=== PATIENT | male | born 1955 | race African-American/Black ===

== ENCOUNTER 2017-06-13 10:32 | Inpatient (IN) ==
[2017-06-13 11:42] LABS: Basophils % 0.2 % (0.0-0.8); Eosinophils # 0.2 10*3/uL (0.0-0.87); Eosinophils % 4.1 % (0.00-10.9); Immature Granulocytes % 0.4 %; Immature Granulocytes Absolute 0.02 #; Lymphocytes % 19.2 % (21.2-54.2); Mean Corpuscular HGB Conc 33.5 GM/DL (32-36); Mean Corpuscular Hemoglobin 31 PG (27-34); Mean Corpuscular Volume 92.4 FL (87-102); Mean Platelet Volume 10.5 FL (9.6-12.0); Monocytes # 0.5 10*3/uL (0.11-0.8); Monocytes % 10.2 % (1.7-12.7); Neutrophils # 3.4 10*3/uL (1.4-7.4); Neutrophils % 65.9 % (38.7-73.9); Platelet Count 127 T/CUMM (130-400); Red Blood Count 1.84 MC/CUMM (3.8-5.5); Red Cell Distribution Width 17.2 % (9.3-17.3); White Blood Count 5.1 T/CUMM (4-12)
--- NOTE | 2017-06-13 11:47 | XRay Report ---
Exam: XR chest 1V portable Date: 06/13/2017 11:18 AM Indication: Shortness of breath Comparison: 06/04/2017 Technical: AP Findings: Cardiomegaly is present. External cardiac leads are present. The necklace is present. Small granulomas present in the left and right chest regions with small calcified nodes in the mediastinum. No obvious infiltrate or effusion. Lateral marginal osteophytes are present. Impression: 1. Removal of the right sided dialysis catheter 2. Cardiomegaly without overt congestive failure infiltrates or effusions with underlying granuloma change. PROCEDURE INTERPRETED AT [facility] DEPARTMENT OF RADIOLOGY Final Report Signed by: Dr. Peña Sheriff
[2017-06-13 11:56] LABS: Hemoglobin 5.7 GM/DL (14.0-18.0)
[2017-06-13 12:09] LABS: Alanine Aminotransferase 13 U/L (16-61); Albumin 3.5 G/DL (3.4-5.0); Alkaline Phosphatase 119 U/L (45-117); Aspartate Amino Transferase 31 U/L (0-37); Bilirubin,Direct < 0.100 MG/DL (0.0-0.20); Bilirubin,Indirect 0.3 MG/DL (0.0-1.0); Blood Urea Nitrogen 92 MG/DL (7-18); Calcium 8.5 MG/DL (8.5-10.1); Glucose 157 MG/DL (74-106); Osmolality,Calculated 311.3 MOS/KG (273-304); Potassium 4.2 MMOL/L (3.5-5.1); Sodium 141 MMOL/L (136-145)
--- NOTE | 2017-06-13 14:08 | Emergency Department Note ---
I, Carolyn Pearce, am scribing for, and in the presence of, Fernando Mcgee MD 11:22. IEverardo Sunil, MD, personally performed the services described in this documentation, ascribed by Carolyn Pearce in my presence, and it is both accurate and complete . Arrival - Arrival Chief Complaint: Shortness of Breath Stated Complaint: SOB ED Nursing Triage Note: SOB onset x 2 days with frequent urination - pt is a dialysis pt and states that he is on peritoneal dialysis and does dialysis daily Mode of Arrival: Wheelchair Limitations: No Limitations Source: Patient - History of Present Illness HPI Narrative: Pt is a 62 y/o male who came to ED with c/o SOB onset x 2 days with frequent urination. Pt does hemodialysis started beginning this year at home once a day with two bottles (unsure of name), in which is peritoneal dialysis. Pt has associated sxs of orthopnea, chills, and BLE swelling (not nml), but denies abdomen pain. Pt reports Silvio put catheter in one month ago. PMHx of gout , but denies hx of heart issues. Onset (ago): week(s) Consistency: constant Severity: moderate Severity scale (1-10): 5 Quality: aching, fullness Allergies/Adverse Reactions: Allergies Allergy/AdvReac Type Severity Reaction Status Date / Time lisinopril Allergy Severe ANAPHYLAXIS Verified 05/08/17 09:59 ANY "PRIL" MEDICATIONS Allergy Severe ANAPHYLAXIS Uncoded 05/08/17 09:59 Home Medications: Home Medications Medication Instructions Recorded Confirmed Type Folic Acid/Vit B Complex and C 1 each PO QAM 11/14/16 06/13/17 History [Dialyvite Tablet] NIFEdipine [Adalat cc] 90 mg PO QAM 11/14/16 06/13/17 History Sevelamer Carbonate Tab [Renvela 800 mg PO BID 05/08/17 06/13/17 History Tab] Cinacalcet [Sensipar] 30 mg PO QAM 06/13/17 06/13/17 History cloNIDine HCl [Clonidine HCl] 0.1 mg PO TID 06/13/17 06/13/17 History Review of System - Review of System 12 point system: reviewed and no additional remarkable complaints except as stated - Review of System Constitutional: Present: chills (cold). Absent: fever Respiratory: Present: respiratory distress. Absent: cough Cardiovascular: Present: orthopnea, edema. Absent: chest pain Gastrointestinal: Absent: abdominal pain, nausea, vomiting Genitourinary male: Present: frequency. Absent: dysuria Skin: Absent: rash Neurological: Absent: headache Medical,Surgical,& Family Hx - Medical History Cardio: History of: Hypertension Psychological: History of: Depression Neurology: No history of: Seizures HEENT: History of: Eye Problem (READING GLASSES) Rheumatology: History of;: Gout Respiratory: No history of: Respiratory Problems (FLU VAC- YES; PNEU VAC- YES.) Renal: History of: Dialysis, Renal Failure Gastrointestinal: History of: GERD, Polyps (REMOVED), GI Problems (HERNIA) - Surgical History Abdominal Surgeries: Surgical HX of: Colonoscopy, EGD Patient denies: Abdominal Surgery (05/08/17 SCHED FOR PERITONEAL DIALYSIS CATHETER) - Social History Smoking Status: Never smoker Frequency of Alcohol Use: None Type of Drug Use: None Marital Status: Single Lives With:: Significant Other Functional capacity: independent ambulation Exam Vital Signs: Vital Signs Temperature 98.1 F 06/13/17 11:38 Pulse Rate 100 H 06/13/17 13:30 Respiratory Rate 18 06/13/17 13:30 Blood Pressure 137/85 06/13/17 13:30 O2 Sat by Pulse Oximetry 98 06/13/17 13:30 - General General appearance: alert, in no apparent distress - Head Head exam: Present: atraumatic, normocephalic - Eye Eye exam: Present: PERRL, EOMI - ENT ENT exam: Present: mucous membranes moist. Absent: mucous membranes dry - Neck Neck exam: Present: full ROM - Chest Chest inspection: Present: symmetric chest wall rise, other (clean catheter). Absent: tenderness - Respiratory Respiratory exam: Present: rales (bilateral crackles). Absent: accessory muscle use, respiratory distress - Cardiovascular Cardiovascular exam: Present: regular rate, normal rhythm, normal heart sounds, JVD (slight elevation) - Abdominal Exam Abdominal exam: Present: soft. Absent: tenderness - Extremities Exam Extremities exam: Present: full ROM, tenderness (right knee some swelling), pedal edema - Neurological Exam Neurological exam: Present: alert, oriented X3, CN II-XII intact - Psychiatric Psychiatric exam: Present: normal affect, normal mood - Skin Skin exam: Present: warm, dry Results - Labs CBC & BMP: 06/13/17 11:31 06/13/17 11:31 Lab Results: I have reviewed the patients labs Labs: Laboratory Tests 06/13/17 06/13/17 06/13/17 11:31 11:31 11:31 WBC 5.1 RBC 1.84 L Hgb 5.7 L* Hct 17.0 L* Plt Count 127 L Lymph % (Auto) 19.2 L Lymph # (Auto) 1.0 L BUN 92 H Creatinine 14.20 H Glucose 157 H Calculated Osmolality 311.3 H Direct Bilirubin < 0.100 Indirect Bilirubin 0.3 AST 31 ALT 13 L Alkaline Phosphatase 119 H B-Natriuretic Peptide 848 H - Impressions Patient has symptomatic anemia admitted him under the hospitalist Disposition Clinical Impression: Symptomatic anemia, End stage renal disease Case discussed with: patient Disposition: Still a Patient Condition: Stable
[2017-06-13] MEDS ORDERED: PROMETHAZINE 25 MG TABLET PO PRN (15:05)
[2017-06-13] MEDS ORDERED: MORPHINE 2 MG/1 ML SYRINGE IV PRN (15:05)
[2017-06-13] MEDS ORDERED: ACETAMINOPHEN 325 MG TABLET PO PRN ×2 (15:05)
[2017-06-13] MEDS ORDERED: guaiFENesin/DM ER 600-30 MG TABLET PO PRN (15:05)
[2017-06-13] MEDS ORDERED: DOCUSATE SODIUM 100 MG CAPSULE PO PRN (15:05)
[2017-06-13] MEDS ORDERED: ONDANSETRON 4 MG/2 ML VIAL IV PRN (15:05)
[2017-06-13] MEDS ORDERED: diphenhydrAMINE CAP 25 MG CAPSULE PO PRN (15:05)
[2017-06-13] MEDS ORDERED: SODIUM CHLORIDE 0.9% 250 ML IV PRN (15:08)
[2017-06-13 15:09] LABS: Apearance,Urine CLEAR (Clear); Bilirubin,Urine Negative (Negative); Blood, Urine Negative (Negative); Glucose,Urine (UA) 50 mg/dL (Negative); Ketones,Urine Negative (Negative); Mucus,Urine Occasional /LPF (Occasional); Nitrite,Urine Negative (Negative); Protein,Urine 100 MG/DL; RBC,Urine 1 /HPF (0-4); Urine Color Yellow (Yellow); Urine Specific Gravity 1.009 (1.001-1.035); Urine Urobilinogen < 2.0 EU/DL (0.2-1.0); WBC,Urine 1 /HPF (0-6)
--- NOTE | 2017-06-13 15:17 | Hospitalist History & Physical ---
<Jesi Powers - Last Filed: 06/13/17 15:11> Assessment and Plan - Time spent with patient Time spent with patient: Greater than 30 minutes (1) End-stage renal disease on peritoneal dialysis Status: Acute Assessment and plan: 62-year-old -[place] male with history of hypertension, gout, and end- stage renal disease on peritoneal dialysis started 1 month ago admitted by the hospitalist service for complaints of shortness of breath. Dr. Perrin will see and examine patient and further recommendations to follow. Severe anemia/SOB--patient was found to be severely anemic with an H&H of 5.7/ 17 and elevated BNP. Will go ahead and transfuse 4 units of blood and give some Lasix in between units due to fluid overload. End-stage renal disease on PD/recent history of peritonitis/fluid overload-- patient is a PD patient so will consult Dr. Carpio from nephrology to assist. Patient states he has been infusing antibiotics through his catheter due to peritonitis for approximately 2 weeks now. There is no antibiotics listed on his home med sheet and he cannot remember which one it is. He is in fluid overload so we will check with nephrology and see if his PD needs to be adjusted. Hypertension--patient's home medicines have been restarted and will continue to monitor his blood pressures which are okay at this point. History of gout--patient is also complaining of some right knee pain so we will check an x-ray and uric acid level due to his history of gout. As needed pain medications have been ordered. If uric acid levels are up can start something for gout at that time. Current Visit: Yes (2) Hypertension Status: Acute Current Visit: Yes (3) History of gout Status: Acute Current Visit: Yes (4) Shortness of breath Status: Acute Current Visit: Yes (5) Symptomatic anemia Status: Acute Current Visit: Yes History of Present Illness Chief complaint: Shortness of breath History of present illness: Mr. Burris is a 62 year old -[place] male with history of hypertension , end-stage renal disease on PD started last month, history of GI bleed requiring blood transfusion, and gout presenting to the ED with a 3 day history of progressive shortness of breath. Patient states over the last several days his shortness of breath has worsened and is gotten to where he can take about 5 or 6 steps before he has to sit down. He is also complaining of right knee pain. He denies dizziness, shortness of breath, and he does have some pedal edema. Patient states he performs his PD every day and he has been infusing antibiotics through his catheter for several weeks now due to peritonitis. This was taken care of at the [facility]. There are no antibiotics listed on his home medicine list. Patient also had right sided dialysis catheter removal from when he did HD just recently. Patient states last September he was found to be severely anemic, required colonoscopy where they found several bleeding polyps that were removed. He states he required 4 units of blood at that time. This was done in [place]. Patient is afebrile and his vital signs are stable. His significant lab values are H&H is 5.7/17, creatinine 14.2, blood sugars 157 and BNP is 848. After discussion with Dr. Mcgee the ED physician and Dr. Perrin the admitting hospitalist, it was agreed patient would be admitted for further evaluation and treatment. Patient's medicines have been reconciled and he is a full code. Home Medications Medication Instructions Recorded Confirmed Type Folic Acid/Vit B Complex and C 1 each PO QAM 11/14/16 06/13/17 History [Dialyvite Tablet] NIFEdipine [Adalat cc] 90 mg PO QAM 11/14/16 06/13/17 History Sevelamer Carbonate Tab [Renvela 800 mg PO TID W/MEALS 05/08/17 06/13/17 History Tab] Allopurinol 100 mg PO DAILY 06/13/17 06/13/17 History Cinacalcet [Sensipar] 30 mg PO QAM 06/13/17 06/13/17 History Ferrous Sulfate 324 mg PO DAILY 06/13/17 06/13/17 History cloNIDine HCl [Clonidine HCl] 0.1 mg PO TID 06/13/17 06/13/17 History Allergies Allergy/AdvReac Type Severity Reaction Status Date / Time lisinopril Allergy Severe ANAPHYLAXIS Verified 05/08/17 09:59 ANY "PRIL" MEDICATIONS Allergy Severe ANAPHYLAXIS Uncoded 05/08/17 09:59 Medical,Surgical,& Family Hx - Medical History Cardio: History of: Hypertension Psychological: History of: Depression Neurology: No history of: Seizures HEENT: History of: Eye Problem (READING GLASSES) Rheumatology: History of;: Gout Respiratory: No history of: Respiratory Problems (FLU VAC- YES; PNEU VAC- YES.) Renal: History of: Dialysis, Renal Failure Gastrointestinal: History of: GERD, Polyps (REMOVED), GI Problems (HERNIA) - Surgical History Abdominal Surgeries: Surgical HX of: Colonoscopy, EGD Patient denies: Abdominal Surgery (05/08/17 SCHED FOR PERITONEAL DIALYSIS CATHETER) - Family History Family History: Reports;: Family Hypertension - Social History Smoking Status: Never smoker Frequency of Alcohol Use: None Type of Drug Use: None Marital Status: Single Lives With:: Alone Functional capacity: independent ambulation 12 point system: reviewed and no additional remarkable complaints except as stated Exam - Constitutional Vitals: Period Temp Pulse Resp BP Sys/Champagne Pulse Ox Last 24 Hr 98.1 F-98.1 F 80-100 18-22 125-160/74-102 97-100 Exam: Constitutional System: No distress. No tremulousness. Head: Normocephalic, atraumatic. Ears, Nose and Throat System: No evidence of Otitis or Mastoiditis. No epistaxis or discharge Eyes System: Pupils equal, round, and reactive. Extraocular muscles intact. Neck: Supple, without adenopathy, No jugular venous distention. No thyromegaly, neck mass, or prior surgery apparent. Respiratory System: Chest clear to auscultation. Cardiovascular System: Heart with regular rate and rhythm. No murmur. GI System: Abdomen soft, nontender. Normo active bowel sounds present. PD catheter intact with no signs of infection. Musculoskeletal System: limbs with minimal pedal edema. Full distal pulses. Neurological System: No discernable sensory deficit. No aphasia Psychiatric System: Conversation is rational Results - Labs CBC & BMP: 06/13/17 11:31 06/13/17 11:31 Lab Results: I have reviewed the past 24 hour labs - Impressions EKG is pending - Diagnostic Findings Procedure: Chest x-ray: report reviewed by me (Removal of right-sided dialysis catheter. Cardiomegaly without overt congestive heart failure or effusions.), X -ray: report reviewed by me (Knee x-ray is pending) Quality Measures - VTE Contraindication to Pharmacological VTE Prophylaxis: High Risk of Bleeding <Asif Perrin - Last Filed: 06/13/17 19:18> Assessment and Plan (1) Symptomatic anemia Status: Acute Assessment and plan: I saw and examined the patient in conjunction with nurse practitioner Ana Horton. Patient has known end-stage renal disease converting recently to peritoneal dialysis. He was also on antibiotics for recent peritonitis. He presented to emergency room with significant dyspnea which has been increasing over the past 3 days. He admits to orthopnea and PND and mild ankle edema. He denies fever, chills, vomiting. Lab work showed hemoglobin 5.7 with hematocrit of 17. Chest x-ray read no overt heart failure. On exam he has a few basilar rales, mild JVD and mild ankle edema. He is currently being transfused. 4 units have been ordered. Nephrology will adjust dialysate for a degree of apparent volume overload. He denies shortness of breath currently at rest. Current Visit: Yes (2) CHF (congestive heart failure) Status: Acute Current Visit: Yes (3) Shortness of breath Status: Acute Current Visit: Yes History of Present Illness History of present illness: Mr. Burris is a 62 year old male Exam - Constitutional Vitals: Period Temp Pulse Resp BP Sys/Champagne Pulse Ox Last 24 Hr 97.7 F-98.2 F 76-100 18-22 125-168/74-102 95-100 Results - Labs CBC & BMP: 06/13/17 11:31 06/13/17 11:31
--- NOTE | 2017-06-13 15:29 | EKG Report ---
Stationary ECG Study [facility] ER Test Date: 06/13/2017 11:05:38 AM Pat Name: CHANTEL DEWEY Department: Room: EDWAIT Gender: M Change Management Lead: MILAGROS Payne : 1955 Requested by: Jesi Powers Order Number: [id number] Reading MD: ALYSA SANCHEZ Intervals [place] Rate: 84 P: 58 CA: 177 QRS: 48 QRSD: 91 T: 238 QT: 380 QTc: 422 Interpretive Statements SINUS RHYTHM MODERATE T-WAVE ABNORMALITY, CONSIDER LATERAL ISCHEMIA MODERATE T-WAVE ABNORMALITY, CONSIDER INFERIOR ISCHEMIA (UNCHANGED FROM PREVIOUS TRACING 06/05/2017) Electronically Signed On 06-15-17 17:51:26 CDT by ALYSA SANCHEZ [email or web address]
[2017-06-13] MEDS ORDERED: PANTOPRAZOLE 40 MG TABLET PO SCH (15:30)
--- NOTE | 2017-06-13 15:30 | XRay Report ---
Right knee, 2 views. Indication: Knee pain. There is a small knee joint effusion. There is patellofemoral joint space loss and exuberant osteophyte formation. There is calcification in the intraosseous ligament. There is narrowing of both the medial and lateral knee joint compartment. There are osteophytes of the medial compartment, and irregularity along the articular surface of the medial femoral condyle. There is anterior tibial spine spurring. No fracture or dislocation. No lytic or blastic lesion. Impression: Pronounced osteoarthritis. Small knee joint effusion. PROCEDURE INTERPRETED AT [facility] DEPARTMENT OF RADIOLOGY Final Report Signed by: Dr. Shazia Sanchez
[2017-06-13] MEDS ORDERED: FUROSEMIDE 20 MG/2 ML VIAL IV ONE ×2 (15:35→23:30)
--- NOTE | 2017-06-13 16:53 | Nephrology Consult Note ---
History of Present Illness Chief complaint: ESRD on PD, symptomatic anemia History of present illness: Mr. Burris is a 62 year old male who is on peritoneal dialysis. He experienced significant exertional dyspnea of lately. And was found to have a hematocrit today of 70%. His hematocrit less than 10 days ago was 27 and prior to that approximately 30. He noticed black stool this past week. He had a 4 unit gi bleed managed at the [facility] less than one year ago. Describes removal of some colon polyps at colonoscopy that were blamed. Iron saturation 22% and ferritin 758 this month Was managed on hemodialysis with a catheter for a while but switched to PD recently and is just completing a course of Fortaz and Merrem for peritonitis with ? culture results. On exam he is in no distress is able to lie flat and breathe comfortably. His chest is clear and his heart without rub or gallop abdomen is distended with peritoneal dialysate and is nontender. He does have 2+ edema of his thighs and lower legs. Chest x-ray demonstrates cardiomegaly with no volume overload Impression end-stage renal disease on peritoneal dialysis. Symptomatic anemia due to probable GI bleed. Recent peritonitis treated with Fortaz and Merrem. Plan we will alternate 2.5 and 4.25% dialysate to remove fluid. He will be transfused. We will consult GI for their evaluation of his bleeding. Home Medications Medication Instructions Recorded Confirmed Type Folic Acid/Vit B Complex and C 1 each PO QAM 11/14/16 06/13/17 History [Dialyvite Tablet] NIFEdipine [Adalat cc] 90 mg PO QAM 11/14/16 06/13/17 History Sevelamer Carbonate Tab [Renvela 800 mg PO BID 05/08/17 06/13/17 History Tab] Cinacalcet [Sensipar] 30 mg PO QAM 06/13/17 06/13/17 History cloNIDine HCl [Clonidine HCl] 0.1 mg PO TID 06/13/17 06/13/17 History Allergies Allergy/AdvReac Type Severity Reaction Status Date / Time lisinopril Allergy Severe ANAPHYLAXIS Verified 05/08/17 09:59 ANY "PRIL" MEDICATIONS Allergy Severe ANAPHYLAXIS Uncoded 05/08/17 09:59 Medical,Surgical,& Family Hx - Medical History Cardio: History of: Hypertension Psychological: History of: Depression Neurology: No history of: Seizures HEENT: History of: Eye Problem (READING GLASSES) Rheumatology: History of;: Gout Respiratory: No history of: Respiratory Problems (FLU VAC- YES; PNEU VAC- YES.) Renal: History of: Dialysis, Renal Failure Gastrointestinal: History of: GERD, Polyps (REMOVED), GI Problems (HERNIA) - Surgical History Abdominal Surgeries: Surgical HX of: Colonoscopy, EGD Patient denies: Abdominal Surgery (05/08/17 SCHED FOR PERITONEAL DIALYSIS CATHETER) - Family History Family History: Reports;: Family Hypertension - Social History Smoking Status: Never smoker Frequency of Alcohol Use: None Type of Drug Use: None Review of Systems 12 point system: reviewed and no additional remarkable complaints except as stated Exam - Vital Signs Vital signs: Period Temp Pulse Resp BP Sys/Champagne Pulse Ox Last 24 Hr 97.7 F-98.1 F 79-100 18-22 125-160/74-102 97-100 - General Appearance General appearance: well-developed, well-nourished, appears started age Neck: no JVD, no thyromegaly, no carotid bruit, supple Respiratory: no kyphosis, no scoliosis Cardiology: no murmurs, no rub, no gallops, no edema, regular rate, regular rhythm, normal S1, normal S2 Gastrointestinal: normoactive bowel sounds Integumentary: no rash, warm and dry Neurologic: no focal deficit, no asterixis, alert and oriented x3, reflexes 2+ and symmetric, gait normal, strength 5/5 Musculoskeletal: no deformities, no erythema, no cyanosis, no clubbing Psychiatric: mood/affect appropriate, cooperative Results - Labs CBC & BMP: 06/13/17 11:31 06/13/17 11:31 Assessment and Plan (1) End-stage renal disease on peritoneal dialysis Status: Acute Current Visit: Yes (2) Symptomatic anemia Status: Acute Current Visit: Yes Specialty Discharge - Follow Up or Referrals - Speciality Discharge Instructions Nephrology Instructions: Peritoneal dialysis alternating 2.5 and 4.25% dialysate. Transfusion. GI evaluation.
[2017-06-13] MEDS: cloNIDine 0.1 MG TABLET PO SCH (20:22)
[2017-06-13] MEDS ORDERED: SEVELAMER CARBONATE 800 MG TABLET PO SCH (21:00)
[2017-06-14 06:58] LABS: Basophils % 0.2 % (0.0-0.8); Eosinophils # 0.2 10*3/uL (0.0-0.87); Eosinophils % 3.7 % (0.00-10.9); Hematocrit 27.2 VOL% (42.0-52.0); Immature Granulocytes % 0.6 %; Immature Granulocytes Absolute 0.03 #; Lymphocytes # 1.1 10*3/uL (1.4-4.0); Lymphocytes % 22.7 % (21.2-54.2); Mean Corpuscular HGB Conc 33.8 GM/DL (32-36); Mean Corpuscular Hemoglobin 29 PG (27-34); Mean Corpuscular Volume 86.6 FL (87-102); Mean Platelet Volume 10.2 FL (9.6-12.0); Monocytes # 0.7 10*3/uL (0.11-0.8); Monocytes % 14.5 % (1.7-12.7); Neutrophils # 2.9 10*3/uL (1.4-7.4); Neutrophils % 58.3 % (38.7-73.9); Platelet Count 111 T/CUMM (130-400); Red Cell Distribution Width 17.9 % (9.3-17.3); White Blood Count 4.9 T/CUMM (4-12)
--- NOTE | 2017-06-14 06:58 | Gastrointestinal Consult Note ---
Assessment and Plan (1) Gastritis and duodenitis Status: Acute Assessment and plan: The patient has had a history of gastritis and duodenitis seen by Dr. Arnold back in 2009. This was thought to be due to Helicobacter pylori infection the patient was treated as he recalls but we do not know what the regimen was and how much that he took exactly. He says he thinks this was longer than 10 days. Upper endoscopy is to be performed. Should determine whether ulcers or erosions that would explain the patient's blood loss over the last 2 weeks, and the melena present. Risks and benefits of the procedure were explained to the patient which include but are not limited to: Bleeding, infection, perforation, cardiac and pulmonary compromise. If gastroparesis is present on endoscopy we will likely have to get a gastric emptying study to quantify this prior to putting him on Reglan if needed. Current Visit: Yes (2) History of Helicobacter pylori infection Status: Acute Assessment and plan: The patient has been treated in the past for Helicobacter pylori, we will determine whether or not this is been eradicated during upper endoscopy. Current Visit: Yes (3) Esophagitis determined by endoscopy Status: Acute Assessment and plan: Patient does have some recent reflux symptoms and so may have significant erosive esophagitis as part of his blood loss recently. We will determine this by endoscopy. He will need be on Protonix 40 mg twice daily. Current Visit: Yes (4) Personal history of colonic polyps Status: Acute Assessment and plan: Patient had recent colonoscopy done by the [place] in [place] approximately 1 year ago. We do not have the results of this colonoscopy report available to us. Dr. Arnold had previously documented AVMs in the colon and so this might represent a secondary source of bleeding is well. Will perform upper endoscopy first and see if this accounts for the loss of blood in this patient. I would like to avoid doing another colonoscopy given his history of post polypectomy bleeding. He is just received 4 units of blood and appears to be doing better at this point we need to watch him for stability over the next day or 2 prior to letting him go home. Current Visit: Yes History of Present Illness Chief complaint: Melena, HCT 27%-->17% over 2 weeks, severe reflux History of present illness: Mr. Burris is a 62 year old male who is been seen by Dr. Arnold at [facility] with his last upper endoscopy having been done on 05/30/2010 which showed active duodenitis and active prepyloric ulceration with reflux esophagitis who at that time was having iron deficiency anemia. The pathology from the stomach demonstrated ulceration with marked chronic inflammation but no sign of malignancy but was positive for Helicobacter pylori. The patient thinks that he was treated at the time but the medications are unknown. The patient also had a colonoscopy 05/22/10 at that time demonstrating AVMs of the cecum 2 but unfortunately there was only about 50% visualization the cecal area due to poor preparation of the colon. There were broad-based polyps removed by hot biopsy and snare polypectomy in the ascending colon transverse colon as well as some second-degree hemorrhoids noted and it was his assessment that the patient should be rechecked in another 2 years i.e. 2011. 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 Biopsies of the colon failed to show any colitis however. Looking through the hospital records as well as [facility] records this apparently did not happen here in [place]. For comparison the patient's creatinine at that time was 2.6. At this time the patient's hematocrit has been noted to be down to 17.0% with a hemoglobin of 5.7. Dr. Carpio who performs peritoneal dialysis on this patient notes that about 10 days ago the patient's hematocrit was 27% and prior to that his baseline runs about 30%. He has had a 4 unit GI bleed [facility]--this occurred after multiple polyps were removed during that colonoscopy in [facility]. Note that this patient's iron saturation was 22% with a ferritin that was fairly high perhaps from inflammation at 758 earlier this month. Note this patient had been on hemodialysis earlier but switched over to peritoneal dialysis and has been getting antibiotics for peritonitis although culture results are questionable according to Dr. Carpio. Looking through the patient's medication list it does not appear that he is on any proton pump inhibitors. This patient previously been in the [facility] working with [place]ince[facility] at the [employer] and elsewhere. He states that he does have fairly severe reflux and some mild epigastric tenderness as well as some early satiety. He had noted one single episode of melena but does not typically look at his stools. He has not seen any bright red blood per rectum that he can recall. Today on physical examination his stools are chestnut brown/ dark and grossly guaiac positive. He does not feel nauseous. The patient has had a single episode of taking Aleve in these last 2 weeks due to a gout flare that was not controlled with Tylenol alone. Home Medications Medication Instructions Recorded Confirmed Type Folic Acid/Vit B Complex and C 1 each PO QAM 11/14/16 06/13/17 History [Dialyvite Tablet] NIFEdipine [Adalat cc] 90 mg PO QAM 11/14/16 06/13/17 History Sevelamer Carbonate Tab [Renvela 800 mg PO TID W/MEALS 05/08/17 06/13/17 History Tab] Allopurinol 100 mg PO DAILY 06/13/17 06/13/17 History Cinacalcet [Sensipar] 30 mg PO QAM 06/13/17 06/13/17 History Ferrous Sulfate 324 mg PO DAILY 06/13/17 06/13/17 History cloNIDine HCl [Clonidine HCl] 0.1 mg PO TID 06/13/17 06/13/17 History Allergies Allergy/AdvReac Type Severity Reaction Status Date / Time lisinopril Allergy Severe ANAPHYLAXIS Verified 05/08/17 09:59 ANY "PRIL" MEDICATIONS Allergy Severe ANAPHYLAXIS Uncoded 05/08/17 09:59 Medical,Surgical,& Family Hx - Medical History Cardio: History of: Hypertension Psychological: History of: Depression Neurology: No history of: Seizures HEENT: History of: Eye Problem (READING GLASSES) Rheumatology: History of;: Gout Respiratory: No history of: Respiratory Problems (FLU VAC- YES; PNEU VAC- YES.) Renal: History of: Dialysis, Renal Failure Gastrointestinal: History of: GERD, Polyps (REMOVED), GI Problems (HERNIA) - Surgical History Abdominal Surgeries: Surgical HX of: Colonoscopy, EGD Patient denies: Abdominal Surgery (05/08/17 SCHED FOR PERITONEAL DIALYSIS CATHETER) - Family History Family History: Reports;: Family Hypertension - Social History Smoking Status: Never smoker Frequency of Alcohol Use: None Type of Drug Use: None Review of systems: Constitutional: Denies fever, chills, mild nausea, but no vomiting Eyes: Denies dry eyes, and scleral icterus HENT: Denies headaches Cardiovascular: He does have some acute chest pain that sounds secondary to reflux but no claudication Respiratory: Denies shortness of breath, wheezing, and difficulty breathing, denies cough Gastrointestinal: As noted in the HPI Genitourinary: He does complain of dysuria and hematuria, patient also complains that he has been having erectile dysfunction Neurologic: Denies vision loss, and loss of sensation Musculoskeletal: Patient does have some joint swelling, joint stiffness, and muscular weakness Psychiatric: Denies depression and ti symptoms Heme-Lymph: Denies easy bruising, lymph node enlargement or tenderness, night sweats, excessive bleeding Allergies-immunologic: Denies pruritus and rhinorrhea Exam - Constitutional Vitals: Period Temp Pulse Resp BP Sys/Champagne Pulse Ox Last 24 Hr 97.6 F-98.8 F 60-100 16-22 125-168/56-102 95-100 Exam: Constitutional: Well-developed, well-nourished, alert, and in no acute distress Head and face: Head: Normocephalic atraumatic Eyes: Conjunctiva without injection, no gross scleral icterus, pupils equal and round bilaterally Ears: Intact to conversation in both ears Nose: External appearance is normal, nares patent Mouth: Oral mucous membranes moist without erythema dentition noted to be without erosion Neck: Normal appearance, no masses or tenderness, trachea midline Thyroid: Gland midline and appropriate size for age Respiratory: Normal respiratory effort, clear to auscultation without wheezes, rhonchi or rales Cardiovascular: Regular rate and rhythm, normal S1, S2, the exam is without rubs, or gallops. He does have a left lower sternal border systolic murmur likely due to turbulent flow Gastrointestinal: Moderately tender to palpation, with right lower abdominal thickening noted where the peritoneal dialysis catheter enters his abdomen, some distention noted, normal active bowel sounds, tone normal without rigidity or guarding, no masses although dialysis catheter is noted in the right lower abdomen present, no hepatomegaly, no spleen tip felt. Rectal examination showed fair tone stool was dark brown/green and grossly guaiac positive. Lymphatic: Neck without adenopathy, axilla without lymphadenopathy present Musculoskeletal: Right and left lower extremities with trace evidence of edema in the pretibial areas bilaterally Skin and subcutaneous tissue: No rashes or ulcerations noted, normal skin turgor, digits and nails without clubbing/cyanosis/deformities. Neurologic: The patient is grossly oriented to person place and time, cranial nerves show tongue movements are normal with normal tongue extrusion midline, light touch sensation is intact. Psychiatric: No hallucinations or delusions are present, does not appear depressed Results - Labs CBC & BMP: 06/14/17 06:30 06/14/17 06:30 Quality Measures - VTE Contraindication to Pharmacological VTE Prophylaxis: High Risk of Bleeding
[2017-06-14 07:00] LABS: INR 1.1; PT Patient Result 11.2 SECS
[2017-06-14 07:13] LABS: Hemoglobin 9.2 GM/DL (14.0-18.0); Red Blood Count 3.14 MC/CUMM (3.8-5.5)
[2017-06-14 07:21] LABS: Calcium 8.4 MG/DL (8.5-10.1); Magnesium 1.9 MG/DL (1.8-2.4); Osmolality,Calculated 309.1 MOS/KG (273-304); Potassium 4.8 MMOL/L (3.5-5.1)
--- NOTE | 2017-06-14 08:38 | Operative Note ---
Date of procedure: 06/14/17 Pre-op diagnosis: Severe reflux, melena, drop in hematocrit to 27%-->17% over 2 weeks Post-op diagnosis: other (This patient has erosive esophagitis, LA class A but appears to have most of his bleeding from erosive duodenitis and erosive gastritis, biopsies pending to look for Helicobacter pylori--if present we may need to treat with broader spectrum Helicobacter pylori treatment. Avoid NSAIDs , start Protonix 40 mg twice daily. Given the fact that this patient had a colonoscopy done one year ago (with subsequent hospitalization for post polypectomy bleeding) we will not repeat the colonoscopy at this time. Findings of upper endoscopy to explain the blood loss over time, as well as the presence of the dark stools.) Procedure: PROCEDURE: Esophagogastroduodenoscopy (EGD) with cold biopsy for pathology REFERRING PHYSICIAN: Clemente Reed MD INDICATIONS: This is a patient who has been last scoped with reflux and erosive gastritis [place] [address] Arnold discovered after Helicobacter pylori that was treated at that time. Patient has since developed a decrease in his hematocrit from 27-17% with some melena over the last 2 weeks. He has severe reflux as well. He is a former [employer] specialist. His primary doctor is Dr. Fariha Gregory MD at the [facility] The prior H&P was reviewed and interrim changes are as noted: No change from GI consultation today ENDOSCOPIST: Jose D Marte MD ENDOSCOPE: Olympus Video 100 System upper endoscope ASA CLASS: 4 EXAM: CV: regular rate and rhythm respiratory: Clear without wheezes abdominal: active bowel sounds MEDICATION: Per nursing anesthesia protocol, see their notes PROCEDURE: After discussion of the potential risks and benefits of upper endoscopy, the informed consent was obtained. The patient was then placed in the left lateral decubitus position where sedation was achieved as noted above. Esophageal intubation was performed without difficulty, and the endoscope was advanced through the esophagus, stomach and duodenum. A slow withdrawal was then performed with retroflexion in the stomach for careful inspection of the incisura angularis, fundus and cardia. The scope was then returned to a neutral position and withdrawn through the esophagus. The patient tolerated the procedure well and without complication. BIOPSIES: Gastric antrum/body, duodenum PHOTOGRAPHS: Obtained FINDINGS: Hypopharynx and Larynx: Normal Esohagoscopy Upper and middle thirds: Normal Lower third LA class A esophagitis noted at the last 1 cm Esophogastric junctions: LA class A erosive esophagitis noted 1 cm, no gross evidence of stricturing or Medina's Gastroscopy: Cardia/Fundus: 2 cm hiatal hernia noted, moderate amount of retained solid food in the stomach consistent with gastroparesis Body: J-shaped stomach with mild to moderate erosive gastritis, biopsied Antrum and pylorus nodular gastritis with a particular inflamed nodule biopsied with multiple erosions, biopsied Duodenoscopy: Bulb severe nodular erosive duodenitis, biopsied Second and third portions: Moderate nodular erosive gastritis, biopsy IMPRESSION: This patient has erosive esophagitis, LA class A but appears to have most of his bleeding from erosive duodenitis and erosive gastritis, biopsies pending to look for Helicobacter pylori--if present we may need to treat with broader spectrum Helicobacter pylori treatment. Avoid NSAIDs, start Protonix 40 mg twice daily. Given the fact that this patient had a colonoscopy done one year ago (with subsequent hospitalization for post polypectomy bleeding ) we will not repeat the colonoscopy at this time. Findings of upper endoscopy to explain the blood loss over time, as well as the presence of the dark stools. RECOMMENDATIONS: Follow up for biopsy results in 1-2 weeks by phone [phone]--treat Helicobacter pylori if present with amoxicillin 1000 mg per day along with clarithromycin 500 mg twice daily and Pepto-Bismol 262 mg 4 times daily, all of these 14 days Continue anti-gastroesophageal reflux measures (avoid carbonated and acidic beverages, avoid eating within 2 hours of bedtime, avoid tight fitting clothing , and elevate the front bed posts 6 inches prior to sleeping. Protonix 40 mg twice daily Jose D Marte MD COPY TO: Jeffrey Carpio MD and Dr. Clemente Reed MD Anesthesia: GRICEL THAKKAR Surgeon / Physician: Jose D Marte Estimated blood loss: minimal Specimens: other (cecum/ascending/descending/sigmoid) Condition: stable Disposition: post procedure unit (G.I. Suite) Results - Labs CBC & BMP: 06/14/17 06:30 06/14/17 06:30 Discharge Plan - Discharge Medications No Action NIFEdipine [Adalat cc] 90 mg PO QAM Sevelamer Carbonate Tab [Renvela Tab] 800 mg PO TID W/MEALS Ferrous Sulfate 324 mg PO DAILY Allopurinol 100 mg PO DAILY Folic Acid/Vit B Complex and C [Dialyvite Tablet] 1 each PO QAM cloNIDine HCl [Clonidine HCl] 0.1 mg PO TID Cinacalcet [Sensipar] 30 mg PO QAM - Follow Up or Referral - Forms/Instructions
--- NOTE | 2017-06-14 08:57 | Anesthesia Post-Op ---
Anesthesia Post OP - Post Ansesthetic Evaluation Patient seen in post op: Yes Resp: within normal limits CV: within normal limits (B/P 160/76, was given apresolin and labatolo Iv for elevated B/P Preop) Mental: within normal limits Temp: within normal limits [id number]: within normal limits Nausea and Vomiting: within normal limits Pain: within normal limits
--- NOTE | 2017-06-14 09:02 | Nephrology Progress Note ---
Nephrology - PN: Subj Interval history: Mr. Sierra is seen in follow-up of his end-stage renal disease on peritoneal dialysis. He seen in the endoscopy lab after he had his upper endoscopy which documented significant esophagitis. He is now on twice daily pantoprazole. Peritoneal dialysis is going well. He has a soft abdomen and is in no distress. His hematocrit is now 27 posttransfusion. Hopefully the proton pump inhibitor will help heal the esophagitis and should be able to go home fairly soon. Exam (PN)-Nephrology - Vital Signs Vital signs: Period Temp Pulse Resp BP Sys/Champagne Pulse Ox Last 24 Hr 97.6 F-98.8 F 60-100 16-22 125-194/56-110 95-100 - Lab 06/14/17 06:30 06/14/17 06:30 Most recent lab results Calcium 8.4 MG/DL (8.5-10.1) L 06/14/17 06:30 Magnesium 1.9 MG/DL (1.8-2.4) 06/14/17 06:30 Assessment and Plan (1) End-stage renal disease on peritoneal dialysis Status: Acute Current Visit: Yes (2) Symptomatic anemia Status: Acute Current Visit: Yes
[2017-06-14] MEDS: cloNIDine 0.1 MG TABLET PO SCH ×3 (09:37→21:23)
[2017-06-14] MEDS: PANTOPRAZOLE 40 MG TABLET PO SCH ×2 (09:37→21:23)
[2017-06-14] MEDS: CINACALCET 30 MG TABLET PO SCH (09:37)
[2017-06-14] MEDS: SEVELAMER CARBONATE 800 MG TABLET PO SCH ×4 (09:37→18:39)
[2017-06-14] MEDS: MULTIVITAMIN (BEROCCA) TABLET PO SCH (09:38)
--- NOTE | 2017-06-14 10:31 | EKG Report ---
Stationary ECG Study [facility] Test Date: 06/14/2017 10:30:53 AM Pat Name: CHANTEL DEWEY Department: Room: 531 Gender: M Truss Builder: : 1955 Requested by: Jesi Powers Order Number: [id number] Reading MD: ALYSA SANCHEZ Intervals [place] Rate: 79 P: 61 IL: 185 QRS: 55 QRSD: 90 T: 269 QT: 398 QTc: 433 Interpretive Statements SINUS RHYTHM MODERATE T-WAVE ABNORMALITY, CONSIDER LATERAL ISCHEMIA MODERATE T-WAVE ABNORMALITY, CONSIDER INFERIOR ISCHEMIA THESE ARE CHRONIC CHANGES Electronically Signed On 06-15-17 18:30:06 CDT by ALYSA SANCHEZ [email or web address]
--- NOTE | 2017-06-14 12:19 | Hospitalist Progress Note ---
Assessment and Plan - Time spent with patient Time spent with patient: Greater than 30 minutes (1) Symptomatic anemia Status: Acute Assessment and plan: Protonix oral twice daily. Avoid NSAIDs Monitor H&H Plan for discharge home on H. pylori therapy. Continue his home antihypertensive medication, monitor blood pressures. Elevated BUN/creatinine also related to GI bleed, monitor now that bleeding has been controlled. Check PSA, start on Flomax 0.4 mg daily, I can plan for him to be evaluated by urology as outpatient if he gets to go home in the next 24-48 hours. SCD hose for DVT prophylaxis Current Visit: Yes (2) End-stage renal disease on peritoneal dialysis Status: Acute Current Visit: Yes (3) Hypertension Status: Acute Current Visit: Yes (4) History of gout Status: Acute Current Visit: Yes (5) Shortness of breath Status: Acute Current Visit: Yes (6) Gastritis and duodenitis Status: Acute Current Visit: Yes (7) History of Helicobacter pylori infection Status: Acute Current Visit: Yes (8) Esophagitis determined by endoscopy Status: Acute Current Visit: Yes Hospitalist: Subjective Interval history: 62-year-old man who was admitted for severe anemia due to GI bleed. Evaluated by gastroenterology, had EGD done today and tolerated procedure well. Findings show severe erosive esophagitis and duodenitis as likely cause of his GI bleed and anemia. He received PRBC with appropriate rise in hematocrit. Now on twice daily protonix plan for discharge H pylori treatment. Complains of straining while urinating, poor urinary stream and dysuria. He stated that he was told his prostate was swollen up to one-point, level followed up. Exam - Constitutional Vitals: Period Temp Pulse Resp BP Sys/Champagne Pulse Ox Last 24 Hr 97.6 F-98.8 F 60-100 16-20 125-194/56-110 95-100 Exam: Exam: Constitutional System: No distress. No tremulousness. Head: Normocephalic, atraumatic. Ears, Nose and Throat System: No evidence of Otitis or Mastoiditis. No epistaxis or discharge Eyes System: Pupils equal, round, and reactive. Extraocular muscles intact. Neck: Supple, without adenopathy, No jugular venous distention. No thyromegaly, neck mass, or prior surgery apparent. Respiratory System: Chest clear to auscultation. Cardiovascular System: Heart with regular rate and rhythm. No murmur. GI System: Abdomen soft, nontender. Normo active bowel sounds present. PD catheter intact with no signs of infection. Musculoskeletal System: limbs with minimal pedal edema. Full distal pulses. Neurological System: No discernable sensory deficit. No aphasia Psychiatric System: Conversation is rational Results - Labs CBC & BMP: 06/14/17 06:30 06/14/17 06:30 Quality Measures - VTE Contraindication to Pharmacological VTE Prophylaxis: High Risk of Bleeding
[2017-06-14 14:39] LABS: Apearance,Urine CLEAR (Clear); Bilirubin,Urine Negative (Negative); Blood, Urine Negative (Negative); Glucose,Urine (UA) 150 mg/dL (Negative); Ketones,Urine Negative (Negative); Nitrite,Urine Negative (Negative); Protein,Urine 100 MG/DL; RBC,Urine 1 /HPF (0-4); Urine Color Straw (Yellow); Urine Specific Gravity 1.008 (1.001-1.035); Urine Urobilinogen < 2.0 EU/DL (0.2-1.0)
[2017-06-14] MEDS ORDERED: LABETALOL 100 MG/20 ML VIAL IV ONE (15:26)
[2017-06-14] MEDS ORDERED: PROPOFOL 200 MG/20 ML VIAL IV ONE (15:26)
[2017-06-14] MEDS ORDERED: LIDOCAINE 1% 5 ML VIAL ONE (15:26)
[2017-06-14] MEDS ORDERED: hydrALAZINE 20 MG/1 ML VIAL ONE (15:26)
--- NOTE | 2017-06-14 20:41 | ECHO Report ---
Tam Burris Exam Date: 06/14/2017 13:44 Referring Physician: Technologist: dai White ARDMS, RVT Age: 62 Ht (in): 73 Wt (lb): 215 Gender: M Exam Location: [facility] Echo Indications: Essential (primary) hypertension, End stage renal disease, Shortness of breath, Anemia, Gout BP: 152 / 84 HR: 84 Rhythm: Sinus Technical Quality: average IMPRESSIONS The Ef is 65 % with no regional wall motion abnormality. There is mild concentric left ventricular hypertrophy with grade I diastolic dysfunction. Tricuspid regurgitation velocities suggest a RVSP of 24 mmHg. Mild pulmonary valve regurgitation with EDV of 1.5 m/sec. MEASUREMENTS (Male / Female) Normal Values 2D ECHO LV Diastolic Diameter PLAX 4.2 cm 4.2 - 5.9 / 3.9 - 5.3 cm LV Systolic Diameter PLAX 3.6 cm LV Fractional Shortening PLAX 15.2 % IVS Diastolic Thickness 1.1 cm 0.6 - 1.0 / 0.6 - 0.9 cm LVPW Diastolic Thickness 1.4 cm 0.6 - 1.0 / 0.6 - 0.9 cm DOPPLER TR Peak Velocity 247.0 cm/s TR Peak Gradient 24.4 mmHg FINDINGS Left Ventricle The Ef is 65 % with no regional wall motion abnormality. There is mild concentric left ventricular hypertrophy with grade I diastolic dysfunction. Right Ventricle Normal right ventricular size. Right Atrium Normal right atrial size. Left Atrium Normal left atrial size. Mitral Valve Mildly thickened mitral valve with mild mitral regurgitation. Aortic Valve The aortic valve is trileaflet and has normal motion.There is mild to moderate aortic insufficiency. Tricuspid Valve Pulmonic Valve Morphologically normal pulmonic valve. Mild pulmonary valve regurgitation with EDV of 1.5 m/sec. Pericardium No pericardial effusion. Aorta Normal size aortic root and proximal ascending aorta. Judit Burris (Electronically Signed) Final Date: 14 June 2017 20:40
[2017-06-14] MEDS: TAMSULOSIN 0.4 MG CAPSULE PO SCH (21:23)
[2017-06-15] MEDS: SEVELAMER CARBONATE 800 MG TABLET PO SCH ×4 (07:42→17:12)
[2017-06-15] MEDS: MULTIVITAMIN (BEROCCA) TABLET PO SCH ×2 (07:42→08:14)
[2017-06-15] MEDS: CINACALCET 30 MG TABLET PO SCH ×2 (07:42→08:14)
[2017-06-15] MEDS: cloNIDine 0.1 MG TABLET PO SCH ×4 (07:43→21:07)
[2017-06-15] MEDS: PANTOPRAZOLE 40 MG TABLET PO SCH ×3 (07:43→21:07)
--- NOTE | 2017-06-15 08:15 | Nephrology Progress Note ---
Nephrology - PN: Subj Interval history: Patient is feeling better today. He denies shortness of breath. Review of systems GI denies nausea or vomiting Physical exam general patient is in no acute distress, he has no pitting edema Assessment/plan 1. End-stage renal disease-we will continue peritoneal dialysis is tolerating this well 2. GI bleed-the patient has fairly severe esophagitis, he is on a proton pump inhibitor 3. Secondary hyperparathyroidism-we will continue Sensipar and his Renvela 4. Hypertension we will continue clonidine. Exam (PN)-Nephrology - Vital Signs Vital signs: Period Temp Pulse Resp BP Sys/Champagne Pulse Ox Last 24 Hr 97.1 F-98.0 F 69-85 16-22 140-190/90-115 96-100 - Lab 06/14/17 06:30 06/14/17 06:30 Most recent lab results Calcium 8.4 MG/DL (8.5-10.1) L 06/14/17 06:30 Magnesium 1.9 MG/DL (1.8-2.4) 06/14/17 06:30
--- NOTE | 2017-06-15 10:49 | Gastrointestinal Progress Note ---
Assessment and Plan - Time spent with patient Time spent with patient: Greater than 30 minutes (1) Gastritis and duodenitis Status: Acute Current Visit: Yes (2) Symptomatic anemia Status: Acute Current Visit: Yes (3) Other specified counseling Status: Acute Current Visit: Yes Exam (Progress Note) - Constitutional Vitals: Period Temp Pulse Resp BP Sys/Champagne Pulse Ox Last 24 Hr 97.1 F-97.9 F 69-85 16-22 151-190/92-115 96-100 Results - Labs CBC & BMP: 06/14/17 06:30 06/14/17 06:30 Note Addendum: PLEASE NOTE -- automatic citation of patient information is unavoidable in this electronic note. I have made a reasonable effort to review the information cited , but it is not a part of my evaluation, impression, or recommendation unless specifically discussed in the dictated text that follows. As well, voice recognition software was used in the creation of this clinical note. Reasonable effort was made to identify and correct gross errors. Despite proofreading, errors in chief media officer may be present, including nonsense verbiage at times. If you encounter such an error, please contact me at for discussion and correction. -- Rg Chief complaint: melena Subjective: the patient is a 62-year-old male seen for follow-up of symptomatic anemia. The patient has received four units of packed red blood cells during this admission and has experienced appropriate response. Blood counts were not done today. He is undergoing peritoneal dialysis the patient underwent upper endoscopy yesterday with finding of erosive esophagitis, erosive duodenitis, and erosive gastritis with bleeding evident from the latter. The patient reports feeling a good deal better after transfusion. He has developed an appetite and would like to eat. He has had at least one bowel movement that was normal without blood. He is currently undergoing peritoneal dialysis. Medications: Tylenol, Sensipar, Press, Benadryl, Colace, Mucinex, [place], morphine, Procardia, Zofran, Protonix, Phenergen, Renvela, Flomax, multivitamin complex Review of Symptoms: 12 point review of symptoms was negative except as noted above Physical examination: Vital Signs: Current vital signs reviewed. General Appearance: lying in bed. Comfortable. Conversant and friendly. Head: Normocephalic. Eyes: no scleral icterus. No scleral injection. No conjunctival pallor. Oral Cavity: Odor of breath was normal. No drooling was observed. Lips showed no abnormalities. Lungs: Respiration rhythm and depth was normal. Cardiovascular: Heart rate and rhythm were normal. Abdomen: abdomen was not distended. Abdominal auscultation revealed no abnormalities. Peritoneal dialysis was ongoing. Abdominal palpation revealed no tenderness and no hepatosplenomegaly. Musculoskeletal System: musculoskeletal system was grossly normal. Neurological: level of consciousness was normal. Speech was normal. No coordination/cerebellum abnormalities were noted. Skin: Gen. appearance was normal. Color and pigmentation were normal. No skin lesions were appreciated. Laboratory: no new labs today Radiology: reviewed Impressions: #1. Upper gastrointestinal bleeding -- the patient has been transfused with appropriate response. Endoscopy revealed a likely source of blood loss and this is being treated appropriately with proton pump inhibitor. Biopsies are pending regarding Helicobacter pylori infection. I recommend continued volume control, continued monitoring of blood counts, further transfusion as indicated, and follow-up of biopsy results once available. #2. Anemia -- as discussed above. #2. Other specified counseling -- Patient seen for greater than 30 minutes. Greater than 50% of this time was spent counseling regarding differential diagnosis, likely diagnosis,, diagnostic and therapeutic options, risks, benefits, and alternatives to procedures and medications, informed consent, and plan of care generally. Patient has expressed understanding and wishes to proceed. Recommendations: -- continued volume management -- continued monitoring of blood counts with further transfusion as indicated -- continue proton pump inhibitor -- we will continue to follow with you
--- NOTE | 2017-06-15 11:37 | Nuclear Medicine Report ---
History is retained material is in the stomach 500 mCi technetium 99m sulfur colloid in the form of eggs and toast given p.o. The half-time is 135 minutes There is 85% residual activity in the stomach at 60 minutes There is 55% residual activity in the stomach at 2 hours There is 18% residual activity in the stomach at 4 hours Impression: Mildly delayed gastric emptying PROCEDURE INTERPRETED AT [facility] DEPARTMENT OF RADIOLOGY Final Report Signed by: Dr. Meera Sanchez
--- NOTE | 2017-06-15 11:50 | Hospitalist Progress Note ---
Assessment and Plan - Time spent with patient Time spent with patient: Greater than 30 minutes (1) Symptomatic anemia Status: Acute Assessment and plan: Continue Protonix oral twice daily. Avoid NSAIDs. Pathology report, follow this patient Monitor H&H Plan for discharge home on H. pylori therapy. Continue his home antihypertensive medication, monitor blood pressures. Continue Flomax 0.4 mg daily, he will need to be evaluated by urology as outpatient Discontinue IV fluids since she is tolerating orally. SCD hose for DVT prophylaxis Current Visit: Yes (2) End-stage renal disease on peritoneal dialysis Status: Acute Current Visit: Yes (3) Hypertension Status: Acute Current Visit: Yes (4) History of gout Status: Acute Current Visit: Yes (5) Shortness of breath Status: Acute Current Visit: Yes (6) Gastritis and duodenitis Status: Acute Current Visit: Yes (7) History of Helicobacter pylori infection Status: Acute Current Visit: Yes (8) Esophagitis determined by endoscopy Status: Acute Current Visit: Yes Hospitalist: Subjective Interval history: He feels better today Undergoing gastric emptying study as recommended by gastroenterology, the report suggests mild gastroparesis Hematocrit has been stable Voiding more freely, dysuria has subsided. Urinalysis does not suggest any urinary tract infection Stable medically for discharge once cleared by GI and nephrology Exam - Constitutional Vitals: Period Temp Pulse Resp BP Sys/Champagne Pulse Ox Last 24 Hr 97.1 F-97.9 F 69-85 16-22 151-190/92-115 96-100 Exam: Exam: Constitutional System: No distress. No tremulousness. Head: Normocephalic, atraumatic. Ears, Nose and Throat System: No evidence of Otitis or Mastoiditis. No epistaxis or discharge Eyes System: Pupils equal, round, and reactive. Extraocular muscles intact. Neck: Supple, without adenopathy, No jugular venous distention. No thyromegaly, neck mass, or prior surgery apparent. Respiratory System: Chest clear to auscultation. Cardiovascular System: Heart with regular rate and rhythm. No murmur. GI System: Abdomen soft, nontender. Normo active bowel sounds present. PD catheter intact with no signs of infection. Musculoskeletal System: limbs with minimal pedal edema. Full distal pulses. Neurological System: No discernable sensory deficit. No aphasia Psychiatric System: Conversation is rational Results - Labs CBC & BMP: 06/14/17 06:30 06/14/17 06:30 Lab Results: I have reviewed the past 24 hour labs Quality Measures - VTE Contraindication to Pharmacological VTE Prophylaxis: High Risk of Bleeding
[2017-06-15] MEDS: TAMSULOSIN 0.4 MG CAPSULE PO SCH (21:07)
[2017-06-16] MEDS: SEVELAMER CARBONATE 800 MG TABLET PO SCH ×2 (07:41→11:27)
--- NOTE | 2017-06-16 07:53 | Nephrology Progress Note ---
Nephrology - PN: Subj Interval history: Patient complains of some soreness in his left shoulder. Review of systems GI denies nausea or vomiting, renal-patient's PD is progressing well Physical exam general the patient is in no acute distress Assessment/plan 1. End-stage renal disease-we will continue PD, patient's weight is been stable 2. GI bleed-patient denies any further bleeding, patient's hematocrit was 27% after transfusion, will recheck a hematocrit 3. Secondary hyperparathyroidism 4. Hypertension Exam (PN)-Nephrology - Vital Signs Vital signs: Period Temp Pulse Resp BP Sys/Champagne Pulse Ox Last 24 Hr 97.6 F-98 F 74-83 16-20 142-184/95-106 97-100 - Lab 06/14/17 06:30 06/14/17 06:30 Most recent lab results Calcium 8.4 MG/DL (8.5-10.1) L 06/14/17 06:30 Magnesium 1.9 MG/DL (1.8-2.4) 06/14/17 06:30
[2017-06-16] MEDS: MULTIVITAMIN (BEROCCA) TABLET PO SCH (10:00)
[2017-06-16] MEDS: PANTOPRAZOLE 40 MG TABLET PO SCH (10:00)
[2017-06-16] MEDS: cloNIDine 0.1 MG TABLET PO SCH (10:00)
[2017-06-16] MEDS: CINACALCET 30 MG TABLET PO SCH (10:00)
--- NOTE | 2017-06-16 11:19 | Discharge Summary ---
Hospital Course - Hospital Course Hospital Course: 62-year-old man with history of hypertension, gout, ESRD on peritoneal dialysis which was started 1 month prior to admission, he presented this time with gradually worsening shortness of breath and during evaluation was found to have severe anemia with hematocrit of 17 on admission requiring multiple transfusion. His hematocrit did improve appropriately with transfusion and he remained hemodynamically stable afterwards. He was seen by gastroenterology, underwent EGD which showed severe erosive gastritis and esophagitis and duodenitis. Biopsies were sent for H pylori. But per gastroenterology recommendation he is to be started on empiric treatment for H pylori upon discharge. During his hospital stay, he did complain of urinary frequency, straining and other features suggestive of BPH. We started him empirically on Flomax with good response. I have discussed the need to follow-up with urology as outpatient. Nephrology was involved in the care of this patient and he continued to have diabetes he is peritoneal dialysis done during this admission. On the day of discharge, he was back to his usual state of health and was stable enough for discharge to outpatient follow-up. - Time spent with patient Time with patient DS: Greater than 30 minutes (Time taken in coordination and documentation) Diagnosis - Discharge Diagnosis (1) Symptomatic anemia Status: Acute (2) End-stage renal disease on peritoneal dialysis Status: Acute (3) Hypertension Status: Acute (4) History of gout Status: Acute (5) Shortness of breath Status: Acute (6) Gastritis and duodenitis Status: Acute (7) History of Helicobacter pylori infection Status: Acute (8) Esophagitis determined by endoscopy Status: Acute Discharge Plan - Discharge Data Disposition: Disch To Home/Self Care Condition at Discharge: Stable Activity: resume usual activities as tolerated - Discharge Medications New Pantoprazole Tab [Protonix Tab] 40 mg PO BID #60 tablet Tamsulosin [Flomax] 0.4 mg PO BEDTIME #30 capsule Clarithromycin [Biaxin] 500 mg PO Q12HR #30 tablet Bismuth Subsalicylate [Pepto-Bismol Chew Tab] 262 mg PO Q6HR #120 tab.chew Continue NIFEdipine [Adalat cc] 90 mg PO QAM Sevelamer Carbonate Tab [Renvela Tab] 800 mg PO TID W/MEALS Ferrous Sulfate 324 mg PO DAILY Allopurinol 100 mg PO DAILY Folic Acid/Vit B Complex and C [Dialyvite Tablet] 1 each PO QAM cloNIDine HCl [Clonidine HCl] 0.1 mg PO TID Cinacalcet [Sensipar] 30 mg PO QAM - Follow Up or Referral - Forms/Instructions Additional Discharge Instructions: Follow-up with urologist as outpatient for management of his BPH. Gastroenterology follow-up. Nephrology follow-up for his hemodialysis Exam - Constitutional Vitals: Period Temp Pulse Resp BP Sys/Champagne Pulse Ox Last 24 Hr 97.6 F-98 F 74-83 16-20 142-184/95-106 97-100 Discharge Results Procedures and tests throughout hospitalization: Pending Orders 06/13/17 11:43 Blood Culture Stat 06/17/17 04:00 Comp Blood Count Auto Diff IN AM Labs on day of discharge: Preliminary micro results at discharge 06/13/17 11:43 Blood Culture - Preliminary Blood No growth at 1 day 06/13/17 11:43 Blood Culture - Preliminary Blood No growth at 1 day DS: Provider Date of admission: 06/13/17 14:20 Primary care physician: . No PCP Attending physician on admission: Asif Perrin MD Consults: 06/13/17 15:05 Consult to Physician [CONS] Routine Comment: on PD admitted w sob, severly anemic Consulting Provider: Jeffrey Carpio When should Consulting Provider be notified: Now Person Notified: MD [email or web address] Date Notified: 06/13/17 Time Notified: 16:18 06/13/17 16:59 Consult to Physician [CONS] Routine Comment: GI bleed Consulting Provider: Jose D Marte When should Consulting Provider be notified: In am Person Notified: CHRISTINE Date Notified: 06/14/17 Time Notified: 08:42 06/14/17 06:59 Consult to Anesthesiology [CONS] Routine Consulting Provider: Reason for Anesthesiology: Pre-op Clearance Discharging clinician: Clemente Reed MD
[2017-06-16 12:04] VITALS: BP 158/100
--- NOTE | 2017-06-17 12:19 | Pathology Report from [facility] ---
[facility] [place] : [id number] PATIENT NAME : Tam Dewey ORDERING DR : Jose D Marte MD CLINICAL HX: GI bleed, anemia POST-OP DX: Same SPECIMEN INFO: #1 Duodenum #2 REGINALD GROSS DESCRIPTION: Received in formalin in two parts labeled:#1 TAM ZULEIMA & #1 is a 1.2 x 0.3 cm aggregate of koo tissue submitted in cassette #1.#2 ATM ZULEIMA & #2 is a 0.7 x 0.3 cm aggregate of koo tissue submitted in cassette #2. DIAGNOSIS FOR TAM DEWEY: #1 DUODENUM, BIOPSY: Acute and chronic duodenitis with focal villous blunting.#2 GASTRIC, BIOPSY: Sever acute and chronic gastritis with organisms consistent with H. pylori identified on H&E stain. COLLECTED DATE: 06/14/2017 [facility] REPORT DATE: 06/17/2017 ELECTRONICALLY SIGNED BY: Vida Mcknight M.D. 06/17/2017 - 10:45:52 MTDD
--- NOTE | 2017-06-19 13:10 | Physician Query Form ---
CLICK EDIT DOCUMENT TO SELECT QUERY ANSWER --> OK --> SIGN Janine Serna RN, CCDS Certified Clinical Patient Safety Manager W) [phone] (f) [phone] [email or web address]: Make your selection(s) from the choices in EACH section by typing an "x" and enter comments in the comment section. Please use your independent medical judgment in providing your response. This request does not imply that any particular answer is desired or expected. CLINICAL INDICATORS: (Providers should not edit this section) The medical record indicates that the patient was admitted with HH of 5.7/17.0 , EGD with "most of his bleeding from erosive duodenitis and erosive gastritis" and the patient was later given 4 units of blood. Based on the above, could you clarify which of the following conditions you are evaluating, treating, and/or monitoring? ( ) Blood loss anemia ( ) acute ( ) chronic ( ) acute on chronic ( ) Acute blood loss anemia on baseline chronic anemia ( ) Acute blood loss anemia as a complication of a procedure ( ) Iron deficiency anemia not associated with blood loss ( ) Dilutional anemia due to IV fluids ( ) Anemia due to chemotherapy ( ) Anemia due to neoplastic disease ( ) Anemia due to chronic kidney disease ( ) Pernicious anemia ( ) Aplastic anemia ( ) Hemolytic anemia ( ) immune ( ) non-immune - please specify cause: ( ) Anemia due to other condition, please specify: (xxx) Clinically unable to determine COMMENTS: Prior EGD results cannot be extrapolated to this admission with complete certainty. PLEASE ALSO DOCUMENT RESPONSE IN PROGRESS NOTES AND/OR DISCHARGE SUMMARY Use of terms such as suspected, likely, or probable (associated with a specific diagnosis that is being evaluated, monitored, or treated as if it exists) are acceptable and can be restated in the discharge summary if not ruled out. MTDD
== END 2017-06-16 13:00 | disposition home or self-care (01) | DRG 377 ==
LOC: N.ED 10:32 → SUATTDRO 14:20 → N.EDINP 14:20 → N.5E 15:29
PROVIDERS: ADMIT Family Medicine; ATTEND Internal Medicine

== ENCOUNTER 2017-08-12 06:20 | Inpatient (IN) ==
[2017-08-12] MEDS: SODIUM CHLORIDE 0.9% 250 ML IV SCH (08:00)
[2017-08-12 08:24] LABS: Hematocrit 10.6 VOL% (42.0-52.0); Hemoglobin 3.3 GM/DL (14.0-18.0)
[2017-08-12] MEDS ORDERED: SODIUM CHLORIDE 0.9% 1,000 ML IV PRN (08:35)
[2017-08-12] MEDS ORDERED: ceFAZolin 1,000 MG VIAL ONE (08:39)
[2017-08-12] MEDS ORDERED: ACETAMINOPHEN 325 MG TABLET PO PRN (10:20)
[2017-08-12] MEDS ORDERED: ONDANSETRON 4 MG/2 ML VIAL IV PRN (10:20)
[2017-08-12 10:54] LABS: Calcium 6.3 MG/DL (8.5-10.1); Potassium 5.1 MMOL/L (3.5-5.1)
[2017-08-12] MEDS ORDERED: HEPARIN 5,000 UNIT/1 ML VIAL ONE (11:57)
[2017-08-12] MEDS ORDERED: BUPIVACAINE 0.25% 50 ML VIAL ONE (12:00)
[2017-08-12] MEDS ORDERED: MIDAZOLAM 2 MG/2 ML VIAL ONE (13:03)
[2017-08-12] MEDS ORDERED: PROPOFOL 200 MG/20 ML VIAL IV ONE (13:03)
[2017-08-12] MEDS ORDERED: ONDANSETRON 4 MG/2 ML VIAL ONE (13:04)
[2017-08-12] MEDS ORDERED: SODIUM CHLORIDE 0.9% 100 ML IV ONE (13:04)
[2017-08-12] MEDS ORDERED: SODIUM CHLORIDE 0.9% 250 ML IV ONE (13:04)
[2017-08-12] MEDS ORDERED: fentaNYL 100 MCG/2 ML VIAL ONE (13:04)
[2017-08-12 20:20] LABS: Hemoglobin 7.1 GM/DL (14.0-18.0)
[2017-08-12] MEDS: TAMSULOSIN 0.4 MG CAPSULE PO SCH (22:01)
[2017-08-12] MEDS: PANTOPRAZOLE 40 MG TABLET PO SCH (22:01)
[2017-08-12] MEDS: cloNIDine 0.1 MG TABLET PO SCH (22:01)
[2017-08-13] MEDS: SODIUM CHLORIDE 0.9% 250 ML IV SCH ×2 (00:05→11:37)
[2017-08-13 04:56] LABS: Basophils % 0.2 % (0.0-0.8); Eosinophils # 0.3 10*3/uL (0.0-0.87); Eosinophils % 6.4 % (0.00-10.9); Hematocrit 21.3 VOL% (42.0-52.0); Hemoglobin 7.1 GM/DL (14.0-18.0); Immature Granulocytes % 0.8 %; Immature Granulocytes Absolute 0.04 #; Lymphocytes # 0.9 10*3/uL (1.4-4.0); Lymphocytes % 16.7 % (21.2-54.2); Mean Corpuscular HGB Conc 33.3 GM/DL (32-36); Mean Corpuscular Hemoglobin 31 PG (27-34); Mean Corpuscular Volume 92.6 FL (87-102); Monocytes # 0.6 10*3/uL (0.11-0.8); Monocytes % 11.4 % (1.7-12.7); NRBC # 0.04 10*3/uL; Neutrophils # 3.4 10*3/uL (1.4-7.4); Neutrophils % 64.5 % (38.7-73.9); Platelet Count 195 T/CUMM (130-400); Red Cell Distribution Width 16.4 % (9.3-17.3); White Blood Count 5.3 T/CUMM (4-12)
[2017-08-13] MEDS ORDERED: MORPHINE 2 MG/1 ML SYRINGE IV PRN (05:12)
[2017-08-13 05:30] LABS: Bilirubin,Total 0.5 MG/DL (0.2-1.0); Calcium 6.9 MG/DL (8.5-10.1); Magnesium 1.6 MG/DL (1.8-2.4); Osmolality,Calculated 297.3 MOS/KG (273-304); Potassium 4.5 MMOL/L (3.5-5.1); Total Protein 5.8 G/DL (6.4-8.3)
[2017-08-13] MEDS ORDERED: POLYETHYLENE GLYCOL 3350/ELECTROLYTES 4,000 ML BOTTLE PEG ONE ×2 (07:05→16:05)
[2017-08-13] MEDS ORDERED: SODIUM CHLORIDE 0.9% 1,000 ML IV PRN (07:44)
[2017-08-13] MEDS ORDERED: PANTOPRAZOLE 40 MG TABLET PO SCH (09:00)
[2017-08-13] MEDS: BISACODYL 5 MG TABLET PO SCH ×3 (09:12→22:54)
[2017-08-13] MEDS: MULTIVITAMIN (BEROCCA) TABLET PO SCH (09:13)
[2017-08-13] MEDS: cloNIDine 0.1 MG TABLET PO SCH ×2 (09:13→20:24)
[2017-08-13] MEDS: SEVELAMER CARBONATE 800 MG TABLET PO SCH ×3 (09:13→17:58)
[2017-08-13] MEDS: PANTOPRAZOLE 40 MG TABLET PO SCH ×2 (09:13→20:24)
[2017-08-13] MEDS: FERROUS SULFATE 325 MG TABLET PO SCH (09:13)
[2017-08-13] MEDS: CINACALCET 30 MG TABLET PO SCH (09:13)
[2017-08-13] MEDS ORDERED: ceFAZolin 1,000 MG in SYRINGE 1 EACH IV ONE (12:04)
[2017-08-13] MEDS: METOCLOPRAMIDE 10 MG/2 ML VIAL IV SCH ×2 (12:57→17:58)
[2017-08-13] MEDS: TAMSULOSIN 0.4 MG CAPSULE PO SCH (20:24)
[2017-08-13] MEDS ORDERED: MAGNESIUM CITRATE 300 ML BOTTLE PO ONE (21:00)
[2017-08-14] MEDS: SODIUM CHLORIDE 0.9% 250 ML IV SCH (00:04)
[2017-08-14] MEDS: METOCLOPRAMIDE 10 MG/2 ML VIAL IV SCH ×2 (00:04→06:14)
[2017-08-14 04:56] LABS: Basophils % 0.4 % (0.0-0.8); Eosinophils # 0.4 10*3/uL (0.0-0.87); Eosinophils % 7.2 % (0.00-10.9); Hematocrit 25.7 VOL% (42.0-52.0); Hemoglobin 8.5 GM/DL (14.0-18.0); Immature Granulocytes % 0.2 %; Immature Granulocytes Absolute 0.01 #; Lymphocytes # 0.7 10*3/uL (1.4-4.0); Lymphocytes % 14.7 % (21.2-54.2); Mean Corpuscular HGB Conc 33.1 GM/DL (32-36); Mean Corpuscular Hemoglobin 30 PG (27-34); Mean Corpuscular Volume 90.8 FL (87-102); Mean Platelet Volume 10.6 FL (9.6-12.0); Monocytes # 0.9 10*3/uL (0.11-0.8); Monocytes % 17.6 % (1.7-12.7); NRBC # 0.02 10*3/uL; Neutrophils # 2.9 10*3/uL (1.4-7.4); Neutrophils % 59.9 % (38.7-73.9); Platelet Count 186 T/CUMM (130-400); Red Blood Count 2.83 MC/CUMM (3.8-5.5); Red Cell Distribution Width 17.2 % (9.3-17.3); White Blood Count 4.8 T/CUMM (4-12)
[2017-08-14 05:33] LABS: Calcium 7.3 MG/DL (8.5-10.1); Magnesium 1.6 MG/DL (1.8-2.4); Osmolality,Calculated 291.7 MOS/KG (273-304); Potassium 4.5 MMOL/L (3.5-5.1)
[2017-08-14 05:35] LABS: Band Neutrophils 1 % (0-10); Eosinophils 4 % (0-10); Lymphocytes 19 % (20-55); Segmented Neutrophils 61 % (50-85); Total Cells Counted 100
[2017-08-14 05:36] LABS: Hypochromasia 1+; Microcytosis 1+; Platelet Estimate Adequate
[2017-08-14] MEDS ORDERED: LIDOCAINE 1%/EPI INJ 20 ML VIAL ONE ×2 (06:19→11:46)
[2017-08-14] MEDS ORDERED: BUPIVACAINE 0.25% 50 ML VIAL ONE ×2 (06:19→11:46)
[2017-08-14] MEDS ORDERED: LIDOCAINE 1% 5 ML VIAL ONE (07:50)
[2017-08-14] MEDS ORDERED: PROPOFOL 200 MG/20 ML VIAL IV ONE ×2 (07:50→12:56)
[2017-08-14] MEDS: SEVELAMER CARBONATE 800 MG TABLET PO SCH ×3 (09:01→17:17)
[2017-08-14] MEDS: MULTIVITAMIN (BEROCCA) TABLET PO SCH (09:01)
[2017-08-14] MEDS: cloNIDine 0.1 MG TABLET PO SCH (09:40)
[2017-08-14] MEDS: PANTOPRAZOLE 40 MG TABLET PO SCH (09:40)
[2017-08-14] MEDS: FERROUS SULFATE 325 MG TABLET PO SCH (09:40)
[2017-08-14] MEDS: CINACALCET 30 MG TABLET PO SCH (09:40)
[2017-08-14] MEDS ORDERED: TISSUE ADHESIVE 1 EACH APPLICATOR TOP ONE (11:46)
[2017-08-14] MEDS: METOCLOPRAMIDE 10 MG TABLET PO SCH ×3 (12:31→17:16)
[2017-08-14] MEDS ORDERED: MIDAZOLAM 2 MG/2 ML VIAL ONE (12:57)
[2017-08-14] MEDS ORDERED: fentaNYL 100 MCG/2 ML VIAL ONE (12:57)
[2017-08-14] MEDS ORDERED: EPOETIN ALFA 2,000 UNIT/1 ML VIAL IV PRN (14:45)
[2017-08-14 17:16] VITALS: BP 117/75
[2017-08-14 21:29] LABS: % Iron Saturation 13.9 % (18-50)
[2017-08-14 22:28] LABS: Hepatitis A Ab IgM Quant 0.02 Index; Hepatitis A Ab IgM Result Negative (Negative); Hepatitis B Core IgM Quant 0.15 Index; Hepatitis B Core IgM Result Negative (Negative); Hepatitis B Surface Ag Quant < 0.10 Index; Hepatitis B Surface Ag Result Negative (Negative); Hepatitis C Virus Ab Quant 0.02 Index; Hepatitis C Virus Ab Result Negative (Negative)
== END 2017-08-14 17:45 | disposition home or self-care (01) | DRG 981 ==
LOC: N.OR 06:20 → N.SDSINP 06:32 → SUATTDRO 09:43 → N.SDSINP 09:43 → N.TELEN 13:46
PROVIDERS: ADMIT Internal Medicine; ATTEND Internal Medicine

== ENCOUNTER 2018-04-03 11:38 | Inpatient (IN) ==
[2018-04-03 13:17] LABS: Basophils % 0.4 % (0.0-0.8); Eosinophils # 0.3 10*3/uL (0.0-0.87); Eosinophils % 5.7 % (0.00-10.9); Hematocrit 19.5 VOL% (42.0-52.0); Immature Granulocytes % 0.4 %; Immature Granulocytes Absolute 0.02 #; Lymphocytes # 0.9 10*3/uL (1.4-4.0); Lymphocytes % 16.9 % (21.2-54.2); Mean Corpuscular HGB Conc 32.3 GM/DL (32-36); Mean Corpuscular Hemoglobin 34 PG (27-34); Mean Corpuscular Volume 104.3 FL (87-102); Monocytes # 0.6 10*3/uL (0.11-0.8); Monocytes % 11.2 % (1.7-12.7); Neutrophils # 3.5 10*3/uL (1.4-7.4); Neutrophils % 65.4 % (38.7-73.9); Platelet Count 282 T/CUMM (130-400); Red Blood Count 1.87 MC/CUMM (3.8-5.5); Red Cell Distribution Width 16.8 % (9.3-17.3); White Blood Count 5.3 T/CUMM (4-12)
[2018-04-03 13:46] LABS: Hemoglobin 6.3 GM/DL (14.0-18.0)
[2018-04-03 13:52] LABS: Calcium 8.8 MG/DL (8.5-10.1); Osmolality,Calculated 278.5 MOS/KG (273-304); Potassium 4.1 MMOL/L (3.5-5.1)
[2018-04-03 14:21] LABS: % Iron Saturation 33.1 % (18-50)
[2018-04-03 14:24] LABS: Alanine Aminotransferase < 9 U/L (16-61); Albumin 3.3 G/DL (3.4-5.0); Alkaline Phosphatase 176 U/L (45-117); Aspartate Amino Transferase 10 U/L (0-37); Bilirubin,Total < 0.39 MG/DL (0.2-1.0); Blood Urea Nitrogen 17 MG/DL (7-18); Calcium 8.8 MG/DL (8.5-10.1); Glucose 97 MG/DL (74-106); Osmolality,Calculated 276.7 MOS/KG (273-304); Potassium 4.1 MMOL/L (3.5-5.1); Sodium 138 MMOL/L (136-145); Total Protein 7.6 G/DL (6.4-8.3)
[2018-04-03 15:12] LABS: Folate > 24.0 NG/ML (5.4-24.0); Vitamin B12 725 PG/ML (211-911)
[2018-04-03 15:31] LABS: Sedimentation Rate-Westergren 132 MM/HR (0-20)
[2018-04-03 15:34] LABS: Basophils % 0.2 % (0.0-0.8); Eosinophils # 0.3 10*3/uL (0.0-0.87); Eosinophils % 5.2 % (0.00-10.9); Hematocrit 18.4 VOL% (42.0-52.0); Immature Granulocytes % 0.4 %; Immature Granulocytes Absolute 0.02 #; Lymphocytes # 0.9 10*3/uL (1.4-4.0); Lymphocytes % 15.3 % (21.2-54.2); Mean Corpuscular HGB Conc 32.6 GM/DL (32-36); Mean Corpuscular Hemoglobin 34 PG (27-34); Mean Corpuscular Volume 105.1 FL (87-102); Mean Platelet Volume 10.5 FL (9.6-12.0); Monocytes # 0.7 10*3/uL (0.11-0.8); Monocytes % 12.4 % (1.7-12.7); Neutrophils # 3.8 10*3/uL (1.4-7.4); Neutrophils % 66.5 % (38.7-73.9); Platelet Count 275 T/CUMM (130-400); Red Blood Count 1.75 MC/CUMM (3.8-5.5); Red Cell Distribution Width 16.5 % (9.3-17.3); White Blood Count 5.6 T/CUMM (4-12)
[2018-04-03 15:35] LABS: Hemoglobin 6.3 GM/DL (14.0-18.0)
[2018-04-03 19:38] LABS: Hematocrit 18.9 VOL% (42.0-52.0)
[2018-04-03 19:54] LABS: Hemoglobin 5.8 GM/DL (14.0-18.0)
[2018-04-03 21:44] LABS: Eosinophils 3 % (0-10); Lymphocytes 14 % (20-55); Platelet Estimate Normal; Polychromasia Few; Segmented Neutrophils 79 % (50-85); Total Cells Counted 100
[2018-04-04 06:21] LABS: Basophils % 0.5 % (0.0-0.8); Eosinophils # 0.2 10*3/uL (0.0-0.87); Eosinophils % 5.2 % (0.00-10.9); Immature Granulocytes % 0.2 %; Immature Granulocytes Absolute 0.01 #; Lymphocytes % 23.2 % (21.2-54.2); Mean Corpuscular HGB Conc 31.9 GM/DL (32-36); Mean Corpuscular Hemoglobin 32 PG (27-34); Mean Corpuscular Volume 100.5 FL (87-102); Mean Platelet Volume 9.7 FL (9.6-12.0); Monocytes # 0.6 10*3/uL (0.11-0.8); Monocytes % 14.5 % (1.7-12.7); Neutrophils # 2.5 10*3/uL (1.4-7.4); Neutrophils % 56.4 % (38.7-73.9); Platelet Count 246 T/CUMM (130-400); Red Blood Count 2.09 MC/CUMM (3.8-5.5); Red Cell Distribution Width 18.6 % (9.3-17.3); White Blood Count 4.4 T/CUMM (4-12)
[2018-04-04 06:24] LABS: Hemoglobin 6.7 GM/DL (14.0-18.0)
[2018-04-04 07:01] LABS: Alanine Aminotransferase < 6 U/L (16-61); Alkaline Phosphatase 159 U/L (45-117); Aspartate Amino Transferase 13 U/L (0-37); Blood Urea Nitrogen 28 MG/DL (7-18); Calcium 7.8 MG/DL (8.5-10.1); Cholesterol 96 MG/DL (50-200); Glucose 83 MG/DL (74-106); HDL Cholesterol 38 MG/DL (40-60); Osmolality,Calculated 281.5 MOS/KG (273-304); Potassium 4.7 MMOL/L (3.5-5.1); Risk Ratio 2.53; Sodium 139 MMOL/L (136-145); Total Protein 6.8 G/DL (6.4-8.3); Triglycerides 122 MG/DL (2-150); VLDL CHOLESTEROL 24.4 MG/DL
[2018-04-04 19:26] LABS: Basophils % 0.2 % (0.0-0.8); Eosinophils # 0.2 10*3/uL (0.0-0.87); Eosinophils % 3.4 % (0.00-10.9); Hematocrit 28.5 VOL% (42.0-52.0); Hemoglobin 9.6 GM/DL (14.0-18.0); Immature Granulocytes % 0.2 %; Immature Granulocytes Absolute 0.01 #; Lymphocytes % 20.5 % (21.2-54.2); Mean Corpuscular HGB Conc 33.7 GM/DL (32-36); Mean Corpuscular Hemoglobin 32 PG (27-34); Mean Corpuscular Volume 94.4 FL (87-102); Mean Platelet Volume 9.5 FL (9.6-12.0); Monocytes # 0.6 10*3/uL (0.11-0.8); Monocytes % 12.2 % (1.7-12.7); Neutrophils % 63.5 % (38.7-73.9); Platelet Count 258 T/CUMM (130-400); Red Blood Count 3.02 MC/CUMM (3.8-5.5); Red Cell Distribution Width 21.1 % (9.3-17.3); White Blood Count 4.7 T/CUMM (4-12)
[2018-04-05 06:38] LABS: Basophils % 0.4 % (0.0-0.8); Eosinophils # 0.2 10*3/uL (0.0-0.87); Eosinophils % 4.2 % (0.00-10.9); Hematocrit 27.1 VOL% (42.0-52.0); Hemoglobin 9.1 GM/DL (14.0-18.0); Lymphocytes # 1.2 10*3/uL (1.4-4.0); Mean Corpuscular HGB Conc 33.6 GM/DL (32-36); Mean Corpuscular Hemoglobin 32 PG (27-34); Mean Corpuscular Volume 94.1 FL (87-102); Mean Platelet Volume 9.9 FL (9.6-12.0); Monocytes # 0.7 10*3/uL (0.11-0.8); Monocytes % 13.9 % (1.7-12.7); Neutrophils # 2.9 10*3/uL (1.4-7.4); Neutrophils % 57.5 % (38.7-73.9); Platelet Count 259 T/CUMM (130-400); Red Blood Count 2.88 MC/CUMM (3.8-5.5); Red Cell Distribution Width 20.2 % (9.3-17.3)
[2018-04-05 07:08] LABS: Calcium 7.9 MG/DL (8.5-10.1); Osmolality,Calculated 281.5 MOS/KG (273-304); Potassium 4.7 MMOL/L (3.5-5.1)
[2018-04-05 08:10] VITALS: BP 140/75
[2018-04-07 09:57] LABS: Hemoglobin A1 (Alkaline) 97.2 % (96.5-98.5); Hemoglobin A2 (Alkaline) 2.8 % (1.5-3.5)
== END 2018-04-05 11:32 | disposition home or self-care (01) | DRG 380 ==
LOC: N.ED 11:38 → N.EDINP 13:14 → SUATTDRO 13:14 → N.EDINP 14:50 → N.5E 15:12
PROVIDERS: ADMIT Hospitalist; ATTEND Hospitalist

== ENCOUNTER 2018-10-13 09:06 | Inpatient (IN) ==
[2018-10-13] MEDS ORDERED: VANCOMYCIN INJ 1,000 MG in SODIUM CHLORIDE 0.9% 250 ML IV STA ×2 (09:26→09:32)
[2018-10-13] MEDS ORDERED: ONDANSETRON 4 MG/2 ML VIAL IV STA (09:26)
[2018-10-13] MEDS ORDERED: ACETAMINOPHEN 500 MG TABLET PO STA (09:29)
[2018-10-13] MEDS ORDERED: HEPARIN LOCK FLUSH 500 UNIT/5 ML SYRINGE IV ONE ×2 (09:35→10:13)
[2018-10-13 10:07] LABS: INR 0.9; PT Patient Result 10.2 SECS
[2018-10-13 10:26] LABS: Basophils % 0.2 % (0.0-0.8); Eosinophils # 0.2 10*3/uL (0.0-0.87); Eosinophils % 3.7 % (0.00-10.9); Hematocrit 18.3 VOL% (42.0-52.0); Immature Granulocytes % 0.4 %; Immature Granulocytes Absolute 0.02 #; Lymphocytes # 1.1 10*3/uL (1.4-4.0); Lymphocytes % 20.7 % (21.2-54.2); Mean Corpuscular HGB Conc 30.6 GM/DL (32-36); Mean Corpuscular Hemoglobin 29 PG (27-34); Mean Corpuscular Volume 95.8 FL (87-102); Mean Platelet Volume 9.4 FL (9.6-12.0); Monocytes # 0.4 10*3/uL (0.11-0.8); Monocytes % 8.4 % (1.7-12.7); Neutrophils # 3.4 10*3/uL (1.4-7.4); Neutrophils % 66.6 % (38.7-73.9); Platelet Count 233 T/CUMM (130-400); Red Blood Count 1.91 MC/CUMM (3.8-5.5); Red Cell Distribution Width 18.6 % (9.3-17.3); White Blood Count 5.1 T/CUMM (4-12)
[2018-10-13 10:28] LABS: Albumin 3.6 G/DL (3.4-5.0); Bilirubin,Total 0.5 MG/DL (0.2-1.0); Calcium 8.7 MG/DL (8.5-10.1); Potassium 5.4 MMOL/L (3.5-5.1); Total Protein 7.4 G/DL (6.4-8.3)
[2018-10-13 10:35] LABS: Hemoglobin 5.6 GM/DL (14.0-18.0)
[2018-10-13] MEDS ORDERED: SODIUM CHLORIDE 0.9% 1,000 ML IV PRN ×2 (10:50→10:54)
[2018-10-13] MEDS ORDERED: DOCUSATE SODIUM 100 MG CAPSULE PO PRN (14:54)
[2018-10-13] MEDS: METOCLOPRAMIDE 5 MG TABLET PO SCH ×2 (16:54→21:16)
[2018-10-13] MEDS: AZITHROMYCIN 250 MG TABLET PO SCH (17:31)
[2018-10-13] MEDS: CINACALCET 30 MG TABLET PO SCH (17:32)
[2018-10-13] MEDS: SEVELAMER CARBONATE 800 MG TABLET PO SCH (17:32)
[2018-10-13] MEDS: TAMSULOSIN 0.4 MG CAPSULE PO SCH (21:16)
[2018-10-14 06:12] LABS: Basophils % 0.5 % (0.0-0.8); Eosinophils # 0.3 10*3/uL (0.0-0.87); Eosinophils % 4.4 % (0.00-10.9); Hematocrit 24.7 VOL% (42.0-52.0); Hemoglobin 7.7 GM/DL (14.0-18.0); Immature Granulocytes % 0.3 %; Immature Granulocytes Absolute 0.02 #; Lymphocytes # 1.4 10*3/uL (1.4-4.0); Lymphocytes % 23.5 % (21.2-54.2); Mean Corpuscular HGB Conc 31.2 GM/DL (32-36); Mean Corpuscular Hemoglobin 29 PG (27-34); Mean Corpuscular Volume 91.5 FL (87-102); Mean Platelet Volume 9.6 FL (9.6-12.0); Monocytes # 0.7 10*3/uL (0.11-0.8); Monocytes % 11.1 % (1.7-12.7); Neutrophils # 3.6 10*3/uL (1.4-7.4); Neutrophils % 60.2 % (38.7-73.9); Platelet Count 259 T/CUMM (130-400); Red Cell Distribution Width 18.6 % (9.3-17.3); White Blood Count 5.9 T/CUMM (4-12)
[2018-10-14 06:32] LABS: Albumin 3.7 G/DL (3.4-5.0); Calcium 8.3 MG/DL (8.5-10.1); Osmolality,Calculated 280.2 MOS/KG (273-304); Potassium 5.5 MMOL/L (3.5-5.1); Total Protein 7.9 G/DL (6.4-8.3)
[2018-10-14] MEDS: SEVELAMER CARBONATE 800 MG TABLET PO SCH ×3 (07:08→17:23)
[2018-10-14] MEDS: METOCLOPRAMIDE 5 MG TABLET PO SCH ×4 (07:08→21:34)
[2018-10-14] MEDS ORDERED: cloNIDine 0.1 MG TABLET PO PRN (08:24)
[2018-10-14] MEDS ORDERED: FOLIC ACID PO SCH (09:00)
[2018-10-14] MEDS ORDERED: VITAMIN B COMPLEX PO SCH (09:00)
[2018-10-14] MEDS ORDERED: PROPOFOL 200 MG/20 ML VIAL IV ONE (10:00)
[2018-10-14] MEDS ORDERED: LIDOCAINE 2% 5 ML VIAL ONE (10:00)
[2018-10-14] MEDS ORDERED: VANCOMYCIN INJ 1,000 MG in SODIUM CHLORIDE 0.9% 250 ML IV ONE (11:00)
[2018-10-14] MEDS ORDERED: VANCOMYCIN INJ 750 MG in SODIUM CHLORIDE 0.9% 250 ML IV PRN (11:01)
[2018-10-14] MEDS: AZITHROMYCIN 250 MG TABLET PO SCH (11:19)
[2018-10-14] MEDS: FERROUS SULFATE 325 MG TABLET PO SCH (11:20)
[2018-10-14] MEDS: MULTIVITAMIN (BEROCCA) TABLET PO SCH (11:21)
[2018-10-14] MEDS: CINACALCET 30 MG TABLET PO SCH (17:23)
[2018-10-14] MEDS: TAMSULOSIN 0.4 MG CAPSULE PO SCH (21:34)
[2018-10-14] MEDS ORDERED: ALUM/MAG/SIMETH/LIDO VISC 1:1 30 ML BOTTLE PO ONE (23:30)
[2018-10-15] MEDS ORDERED: SODIUM CHLORIDE 0.9% 1,000 ML IV PRN (07:04)
[2018-10-15 07:07] LABS: Basophils % 0.2 % (0.0-0.8); Eosinophils # 0.3 10*3/uL (0.0-0.87); Eosinophils % 4.6 % (0.00-10.9); Hematocrit 21.8 VOL% (42.0-52.0); Hemoglobin 6.6 GM/DL (14.0-18.0); Immature Granulocytes % 0.4 %; Immature Granulocytes Absolute 0.02 #; Lymphocytes # 1.3 10*3/uL (1.4-4.0); Lymphocytes % 23.4 % (21.2-54.2); Mean Corpuscular HGB Conc 30.3 GM/DL (32-36); Mean Corpuscular Hemoglobin 28 PG (27-34); Mean Platelet Volume 10.2 FL (9.6-12.0); Monocytes # 0.7 10*3/uL (0.11-0.8); Monocytes % 12.1 % (1.7-12.7); Neutrophils # 3.2 10*3/uL (1.4-7.4); Neutrophils % 59.3 % (38.7-73.9); Platelet Count 240 T/CUMM (130-400); Red Blood Count 2.37 MC/CUMM (3.8-5.5); Red Cell Distribution Width 17.9 % (9.3-17.3); White Blood Count 5.4 T/CUMM (4-12)
[2018-10-15] MEDS ORDERED: LIDOCAINE 1%/EPI INJ 20 ML VIAL ONE (07:40)
[2018-10-15 07:42] LABS: Alanine Aminotransferase 14 U/L (16-61); Albumin 3.4 G/DL (3.4-5.0); Alkaline Phosphatase 75 U/L (45-117); Aspartate Amino Transferase 6 U/L (0-37); Bilirubin,Total < 0.39 MG/DL (0.2-1.0); Blood Urea Nitrogen 75 MG/DL (7-18); Calcium 8.2 MG/DL (8.5-10.1); Glucose 99 MG/DL (74-106); Osmolality,Calculated 287.4 MOS/KG (273-304); Potassium 5.3 MMOL/L (3.5-5.1); Sodium 133 MMOL/L (136-145)
[2018-10-15] MEDS ORDERED: PROPOFOL 200 MG/20 ML VIAL IV ONE (08:44)
[2018-10-15] MEDS ORDERED: LIDOCAINE/PRILOCAINE CREAM 5 GM TUBE TOP ONE (09:17)
[2018-10-15] MEDS: METOCLOPRAMIDE 5 MG TABLET PO SCH ×4 (09:46→20:30)
[2018-10-15] MEDS: SEVELAMER CARBONATE 800 MG TABLET PO SCH ×3 (09:46→18:16)
[2018-10-15] MEDS: MULTIVITAMIN (BEROCCA) TABLET PO SCH (11:59)
[2018-10-15] MEDS: FERROUS SULFATE 325 MG TABLET PO SCH (11:59)
[2018-10-15] MEDS: PANTOPRAZOLE 40 MG VIAL IV SCH (12:00)
[2018-10-15] MEDS: AZITHROMYCIN 250 MG TABLET PO SCH (12:03)
[2018-10-15] MEDS ORDERED: VANCOMYCIN INJ 750 MG in SODIUM CHLORIDE 0.9% 250 ML IV PRN (13:05)
[2018-10-15] MEDS ORDERED: VANCOMYCIN INJ 750 MG in SODIUM CHLORIDE 0.9% 250 ML IV ONE (13:30)
[2018-10-15] MEDS: CINACALCET 30 MG TABLET PO SCH (18:16)
[2018-10-15] MEDS: TAMSULOSIN 0.4 MG CAPSULE PO SCH (20:30)
[2018-10-16 07:18] LABS: Basophils % 0.7 % (0.0-0.8); Eosinophils # 0.2 10*3/uL (0.0-0.87); Eosinophils % 4.1 % (0.00-10.9); Immature Granulocytes % 0.2 %; Immature Granulocytes Absolute 0.01 #; Lymphocytes # 1.2 10*3/uL (1.4-4.0); Mean Corpuscular HGB Conc 30.4 GM/DL (32-36); Mean Corpuscular Hemoglobin 27 PG (27-34); Mean Platelet Volume 10.4 FL (9.6-12.0); Monocytes # 0.7 10*3/uL (0.11-0.8); Monocytes % 12.5 % (1.7-12.7); Neutrophils # 3.2 10*3/uL (1.4-7.4); Neutrophils % 59.5 % (38.7-73.9); Platelet Count 250 T/CUMM (130-400); Red Cell Distribution Width 18.1 % (9.3-17.3); White Blood Count 5.4 T/CUMM (4-12)
[2018-10-16 07:30] LABS: Hemoglobin 8.2 GM/DL (14.0-18.0)
[2018-10-16 07:45] LABS: Albumin 3.6 G/DL (3.4-5.0); Bilirubin,Total 0.5 MG/DL (0.2-1.0); Calcium 8.3 MG/DL (8.5-10.1); Osmolality,Calculated 279.4 MOS/KG (273-304); Potassium 5.1 MMOL/L (3.5-5.1); Total Protein 7.7 G/DL (6.4-8.3)
[2018-10-16] MEDS: METOCLOPRAMIDE 5 MG TABLET PO SCH ×2 (08:28→10:53)
[2018-10-16] MEDS: FERROUS SULFATE 325 MG TABLET PO SCH (08:28)
[2018-10-16] MEDS: AZITHROMYCIN 250 MG TABLET PO SCH (08:28)
[2018-10-16] MEDS: SEVELAMER CARBONATE 800 MG TABLET PO SCH ×2 (08:28→11:29)
[2018-10-16] MEDS: MULTIVITAMIN (BEROCCA) TABLET PO SCH (08:28)
[2018-10-16] MEDS: PANTOPRAZOLE 40 MG VIAL IV SCH (09:16)
[2018-10-16 11:43] VITALS: BP 119/72
[2018-10-17] MEDS ORDERED: ceFAZolin 2,000 MG in SYRINGE 1 EACH IV SCH (17:00)
== END 2018-10-16 15:20 | disposition home or self-care (01) | DRG 377 ==
LOC: EDBD → EDUNIT# → N.ED 09:06 → N.EDINP 09:06 → INTOOBSV 10:50 → OBSVTOIN 10:54 → N.5E 11:45
PROVIDERS: ADMIT Internal Medicine; ATTEND Internal Medicine

== ENCOUNTER 2019-01-19 08:23 | Observation (INO) ==
[2019-01-19 08:59] LABS: Basophils % 0.7 % (0.0-0.8); Eosinophils # 0.4 10*3/uL (0.0-0.87); Eosinophils % 5.9 % (0.00-10.9); Hematocrit 27.7 VOL% (42.0-52.0); Hemoglobin 8.4 GM/DL (14.0-18.0); Immature Granulocytes % 0.3 %; Immature Granulocytes Absolute 0.02 #; Lymphocytes # 1.1 10*3/uL (1.4-4.0); Lymphocytes % 18.5 % (21.2-54.2); Mean Corpuscular HGB Conc 30.3 GM/DL (32-36); Mean Corpuscular Volume 94.2 FL (87-102); Mean Platelet Volume 9.4 FL (9.6-12.0); Monocytes % 9.1 % (1.7-12.7); Neutrophils % 65.5 % (38.7-73.9); Platelet Count 261 T/CUMM (130-400); Red Blood Count 2.94 MC/CUMM (3.8-5.5); Red Cell Distribution Width 17.8 % (9.3-17.3)
[2019-01-19 09:05] LABS: INR 0.9; Partial Thromboplastin Time 24.7 SECS (0-40)
[2019-01-19 09:26] LABS: Alanine Aminotransferase 17 U/L (16-61); Albumin 4.3 G/DL (3.4-5.0); Alkaline Phosphatase 70 U/L (45-117); Aspartate Amino Transferase 7 U/L (0-37); Bilirubin,Total < 0.39 MG/DL (0.2-1.0); Blood Urea Nitrogen 55 MG/DL (7-18); Calcium 9.5 MG/DL (8.5-10.1); Glucose 115 MG/DL (74-106); Osmolality,Calculated 294.4 MOS/KG (273-304); Total Protein 7.8 G/DL (6.4-8.3)
[2019-01-19] MEDS ORDERED: methylPREDNISolone SOD SUC 125 MG/2 ML VIAL IV STA (09:26)
[2019-01-19] MEDS ORDERED: FUROSEMIDE 100 MG/10 ML VIAL IV STA (09:26)
[2019-01-19] MEDS ORDERED: ALBUTEROL/IPRATROPIUM 3 ML NEB RESP TX STA (09:26)
[2019-01-19] MEDS ORDERED: ONDANSETRON 4 MG/2 ML VIAL IV PRN (11:37)
[2019-01-19] MEDS ORDERED: ACETAMINOPHEN 325 MG TABLET PO PRN (11:37)
[2019-01-19] MEDS ORDERED: LIDOCAINE/PRILOCAINE CREAM 5 GM TUBE TOP SCH (12:00)
[2019-01-19] MEDS: SEVELAMER CARBONATE 800 MG TABLET PO SCH ×2 (13:00→17:10)
[2019-01-19] MEDS: NICOTINE 7 MG/24 HR PATCH TRANSDERM SCH (13:02)
[2019-01-19] MEDS ORDERED: ALBUTEROL/IPRATROPIUM 3 ML NEB RESP TX PRN (16:25)
[2019-01-19] MEDS ORDERED: TAMSULOSIN 0.4 MG CAPSULE PO SCH (21:00)
[2019-01-19] MEDS ORDERED: CINACALCET 30 MG TABLET PO SCH (21:00)
[2019-01-19] MEDS ORDERED: cloNIDine 0.1 MG TABLET PO SCH (21:00)
[2019-01-20] MEDS: PANTOPRAZOLE 40 MG TABLET PO SCH ×2 (00:14→09:21)
[2019-01-20 05:50] LABS: Basophils % 0.2 % (0.0-0.8); Hematocrit 25.9 VOL% (42.0-52.0); Immature Granulocytes % 0.3 %; Immature Granulocytes Absolute 0.02 #; Mean Corpuscular HGB Conc 30.9 GM/DL (32-36); Mean Corpuscular Volume 93.5 FL (87-102); Mean Platelet Volume 9.6 FL (9.6-12.0); Neutrophils % 72.5 % (38.7-73.9); Platelet Count 229 T/CUMM (130-400); Red Blood Count 2.77 MC/CUMM (3.8-5.5); Red Cell Distribution Width 17.7 % (9.3-17.3); White Blood Count 6.6 T/CUMM (4-12)
[2019-01-20 05:57] LABS: Calcium 9.1 MG/DL (8.5-10.1); Osmolality,Calculated 290.5 MOS/KG (273-304)
[2019-01-20 07:30] LABS: Risk Ratio 3.29; Thyroid Stimulating Hormone 0.591 uIU/ml (0.358-3.74); VLDL CHOLESTEROL 22.2 MG/DL
[2019-01-20] MEDS ORDERED: LIDOCAINE/PRILOCAINE CREAM 5 GM TUBE TOP SCH (07:30)
[2019-01-20] MEDS ORDERED: FERROUS SULFATE 325 MG TABLET PO SCH (09:00)
[2019-01-20] MEDS ORDERED: hydrALAZINE 25 MG TABLET PO SCH (09:00)
[2019-01-20] MEDS ORDERED: METOCLOPRAMIDE 10 MG TABLET PO SCH (09:00)
[2019-01-20] MEDS ORDERED: MULTIVITAMIN (BEROCCA) TABLET PO SCH (09:00)
[2019-01-20] MEDS ORDERED: PANTOPRAZOLE 40 MG TABLET PO SCH (09:00)
[2019-01-20] MEDS: SEVELAMER CARBONATE 800 MG TABLET PO SCH ×2 (09:21→13:08)
[2019-01-20] MEDS: NICOTINE 7 MG/24 HR PATCH TRANSDERM SCH (09:21)
[2019-01-20 11:39] VITALS: BP 189/88
[2019-01-20] MEDS ORDERED: CINACALCET 30 MG TABLET PO SCH (21:00)
== END 2019-01-20 17:28 | disposition home or self-care (01) ==
LOC: EDUNIT# → EDBD → N.EDINP 08:23 → N.ED 08:23 → SUATTDRO 11:37 → N.2E 15:24
PROVIDERS: ADMIT Internal Medicine; ATTEND Hospitalist

== ENCOUNTER 2019-05-07 05:49 | Inpatient (IN) ==
[2019-05-05 13:28] LABS: Basophils % 0.4 % (0.0-0.8); Eosinophils # 0.3 10*3/uL (0.0-0.87); Eosinophils % 5.4 % (0.00-10.9); Hematocrit 24.3 VOL% (42.0-52.0); Hemoglobin 7.2 GM/DL (14.0-18.0); Immature Granulocytes % 0.8 %; Immature Granulocytes Absolute 0.04 #; Lymphocytes # 1.2 10*3/uL (1.4-4.0); Lymphocytes % 23.9 % (21.2-54.2); Mean Corpuscular HGB Conc 29.6 GM/DL (32-36); Mean Corpuscular Volume 93.5 FL (87-102); Mean Platelet Volume 9.2 FL (9.6-12.0); Monocytes % 12.7 % (1.7-12.7); Neutrophils % 56.8 % (38.7-73.9); Platelet Count 254 T/CUMM (130-400); Red Cell Distribution Width 16.7 % (9.3-17.3); White Blood Count 4.8 T/CUMM (4-12)
[2019-05-05 13:42] LABS: Calcium 8.9 MG/DL (8.5-10.1); Osmolality,Calculated 285.4 MOS/KG (273-304)
[2019-05-07] MEDS ORDERED: ceFAZolin 1,000 MG VIAL ONE ×2 (05:50→06:02)
[2019-05-07] MEDS ORDERED: SODIUM CHLORIDE 0.9% 250 ML IV SCH (06:00)
[2019-05-07] MEDS ORDERED: DIAZEPAM 5 MG TABLET ONE (06:29)
[2019-05-07] MEDS ORDERED: FAMOTIDINE 20 MG TABLET ONE (06:29)
[2019-05-07] MEDS ORDERED: LIDOCAINE 1% 20 ML VIAL ONE (06:29)
[2019-05-07] MEDS ORDERED: BUPIVACAINE MPF 0.25% /EPI 30 ML VIAL ONE (06:29)
[2019-05-07] MEDS ORDERED: ceFAZolin 1,000 MG in SYRINGE 1 EACH IV ONE (06:30)
[2019-05-07 06:33] LABS: Hematocrit 24.4 VOL% (42.0-52.0); Hemoglobin 7.3 GM/DL (14.0-18.0)
[2019-05-07] MEDS ORDERED: DIAZEPAM 5 MG TABLET PO ONE (06:34)
[2019-05-07] MEDS ORDERED: FAMOTIDINE 20 MG TABLET PO ONE (06:34)
[2019-05-07] MEDS ORDERED: INDOCYANINE GREEN 25 MG VIAL IV ONE (08:25)
[2019-05-07] MEDS ORDERED: SUGAMMADEX 200 MG/2 ML VIAL IV ONE (10:33)
[2019-05-07] MEDS ORDERED: ONDANSETRON 4 MG/2 ML VIAL IV PRN ×2 (10:44→11:23)
[2019-05-07] MEDS ORDERED: PROPOFOL 200 MG/20 ML VIAL IV ONE (10:50)
[2019-05-07] MEDS ORDERED: fentaNYL 100 MCG/2 ML VIAL ONE (10:50)
[2019-05-07] MEDS ORDERED: SEVOFLURANE 1 UNIT/15 MINUTE INH ONE (10:50)
[2019-05-07] MEDS ORDERED: ONDANSETRON 4 MG/2 ML VIAL ONE (10:51)
[2019-05-07] MEDS ORDERED: PHENYLEPHRINE 1 MG/10 ML SYRINGE IV ONE (10:52)
[2019-05-07] MEDS ORDERED: SODIUM CHLORIDE 0.9% 250 ML IV ONE (10:52)
[2019-05-07] MEDS ORDERED: PHENYLEPHRINE 10 MG/1 ML VIAL IV ONE (10:52)
[2019-05-07] MEDS ORDERED: GLYCOPYRROLATE 0.4 MG/2 ML VIAL ONE (10:53)
[2019-05-07] MEDS ORDERED: NEOSTIGMINE 10 MG/10 ML VIAL ONE (10:53)
[2019-05-07] MEDS ORDERED: ROCURONIUM 100 MG/10 ML VIAL IV ONE (10:53)
[2019-05-07] MEDS ORDERED: hydrALAZINE 20 MG/1 ML VIAL ONE (11:20)
[2019-05-07] MEDS ORDERED: hydrALAZINE 20 MG/1 ML VIAL IV ONE (11:24)
[2019-05-07] MEDS: HYDROmorphone 2 MG/1 ML VIAL IV PRN ×3 (11:25→13:16)
[2019-05-07 12:41] LABS: Hematocrit 24.6 VOL% (42.0-52.0); Hemoglobin 7.2 GM/DL (14.0-18.0)
[2019-05-07] MEDS: DEXTROSE 5% NACL 0.9% 1,000 ML IV SCH ×2 (13:45→19:49)
[2019-05-07] MEDS: ceFAZolin 2,000 MG in SYRINGE 1 EACH IV SCH (18:06)
[2019-05-07] MEDS: MORPHINE 4 MG/1 ML VIAL IV PRN ×2 (18:14→22:11)
[2019-05-07 19:44] LABS: Hematocrit 24.5 VOL% (42.0-52.0); Hemoglobin 7.1 GM/DL (14.0-18.0)
[2019-05-08] MEDS: ceFAZolin 2,000 MG in SYRINGE 1 EACH IV SCH (00:59)
[2019-05-08] MEDS: DEXTROSE 5% NACL 0.9% 1,000 ML IV SCH ×3 (04:00→19:19)
[2019-05-08] MEDS: MORPHINE 4 MG/1 ML VIAL IV PRN (04:01)
[2019-05-08 06:02] LABS: Basophils % 0.2 % (0.0-0.8); Eosinophils # 0.2 10*3/uL (0.0-0.87); Eosinophils % 2.9 % (0.00-10.9); Hematocrit 20.7 VOL% (42.0-52.0); Immature Granulocytes % 0.2 %; Immature Granulocytes Absolute 0.01 #; Lymphocytes # 0.6 10*3/uL (1.4-4.0); Mean Corpuscular HGB Conc 29.5 GM/DL (32-36); Mean Corpuscular Volume 95.8 FL (87-102); Mean Platelet Volume 9.7 FL (9.6-12.0); Neutrophils % 76.7 % (38.7-73.9); Platelet Count 219 T/CUMM (130-400); Red Blood Count 2.16 MC/CUMM (3.8-5.5); Red Cell Distribution Width 16.7 % (9.3-17.3); White Blood Count 5.6 T/CUMM (4-12)
[2019-05-08 06:05] LABS: Hemoglobin 6.1 GM/DL (14.0-18.0)
[2019-05-08] MEDS ORDERED: SODIUM CHLORIDE 0.9% 1,000 ML IV PRN (07:47)
[2019-05-08] MEDS ORDERED: CETIRIZINE 5 MG TABLET PO PRN (07:49)
[2019-05-08 08:12] LABS: Calcium 7.3 MG/DL (8.5-10.1); Osmolality,Calculated 323.6 MOS/KG (273-304)
[2019-05-08] MEDS ORDERED: PANTOPRAZOLE 40 MG TABLET PO SCH (09:00)
[2019-05-08] MEDS: SEVELAMER CARBONATE 800 MG TABLET PO SCH ×3 (09:56→17:12)
[2019-05-08] MEDS: KETOROLAC 15 MG/1 ML VIAL IV SCH ×3 (09:56→20:29)
[2019-05-08] MEDS: MULTIVITAMIN (BEROCCA) TABLET PO SCH ×2 (09:57→10:15)
[2019-05-08] MEDS: hydrALAZINE 25 MG TABLET PO SCH ×2 (10:15→20:29)
[2019-05-08] MEDS: PANTOPRAZOLE 40 MG TABLET PO SCH ×2 (10:15→20:29)
[2019-05-08] MEDS: ASPIRIN EC 81 MG TABLET PO SCH (10:15)
[2019-05-08] MEDS: FERROUS SULFATE 325 MG TABLET PO SCH ×3 (10:15→20:29)
[2019-05-08 14:21] LABS: Hematocrit 29.7 VOL% (42.0-52.0)
[2019-05-08] MEDS ORDERED: CINACALCET 30 MG TABLET PO SCH (21:00)
[2019-05-08] MEDS ORDERED: TAMSULOSIN 0.4 MG CAPSULE PO SCH (21:00)
[2019-05-09] MEDS: KETOROLAC 15 MG/1 ML VIAL IV SCH ×2 (03:06→09:22)
[2019-05-09] MEDS: DEXTROSE 5% NACL 0.9% 1,000 ML IV SCH (03:13)
[2019-05-09 06:46] LABS: Basophils % 0.3 % (0.0-0.8); Eosinophils # 0.4 10*3/uL (0.0-0.87); Eosinophils % 6.4 % (0.00-10.9); Hematocrit 29.7 VOL% (42.0-52.0); Hemoglobin 8.8 GM/DL (14.0-18.0); Immature Granulocytes % 0.3 %; Immature Granulocytes Absolute 0.02 #; Lymphocytes # 0.7 10*3/uL (1.4-4.0); Lymphocytes % 11.2 % (21.2-54.2); Mean Corpuscular HGB Conc 29.6 GM/DL (32-36); Mean Corpuscular Volume 90.5 FL (87-102); Mean Platelet Volume 9.6 FL (9.6-12.0); Monocytes % 10.1 % (1.7-12.7); Neutrophils % 71.7 % (38.7-73.9); Platelet Count 223 T/CUMM (130-400); Red Blood Count 3.28 MC/CUMM (3.8-5.5); Red Cell Distribution Width 18.3 % (9.3-17.3)
[2019-05-09 07:13] LABS: Calcium 8.1 MG/DL (8.5-10.1); Osmolality,Calculated 284.4 MOS/KG (273-304)
[2019-05-09] MEDS: SEVELAMER CARBONATE 800 MG TABLET PO SCH (09:22)
[2019-05-09] MEDS: MULTIVITAMIN (BEROCCA) TABLET PO SCH ×2 (09:23)
[2019-05-09] MEDS: ASPIRIN EC 81 MG TABLET PO SCH (09:23)
[2019-05-09] MEDS: FERROUS SULFATE 325 MG TABLET PO SCH (09:23)
[2019-05-09] MEDS: PANTOPRAZOLE 40 MG TABLET PO SCH (09:23)
[2019-05-09] MEDS: hydrALAZINE 25 MG TABLET PO SCH (09:23)
[2019-05-09 11:53] VITALS: BP 146/82
== END 2019-05-09 11:25 | disposition home or self-care (01) | DRG 347 ==
LOC: N.PREADM 05:49 → N.SDSINP 05:49 → N.3E 13:58
PROVIDERS: ADMIT Surgery; ATTEND Surgery

== ENCOUNTER 2019-10-05 14:57 | Inpatient (IN) ==
[2019-10-05] MEDS ORDERED: ONDANSETRON 4 MG/2 ML VIAL IV PRN (17:05)
[2019-10-05 17:45] LABS: Basophils % 0.4 % (0.0-0.8); Eosinophils # 0.1 10*3/uL (0.0-0.87); Eosinophils % 2.3 % (0.00-10.9); Immature Granulocytes % 0.7 %; Immature Granulocytes Absolute 0.04 #; Lymphocytes # 0.5 10*3/uL (1.4-4.0); Mean Corpuscular Volume 93.1 FL (87-102); Mean Platelet Volume 9.8 FL (9.6-12.0); Monocytes % 10.2 % (1.7-12.7); Neutrophils % 77.4 % (38.7-73.9); Platelet Count 203 T/CUMM (130-400); Red Blood Count 2.04 MC/CUMM (3.8-5.5); Red Cell Distribution Width 15.6 % (9.3-17.3); White Blood Count 5.7 T/CUMM (4-12)
[2019-10-05 17:48] LABS: Hemoglobin 5.7 GM/DL (14.0-18.0)
[2019-10-05 18:03] LABS: Albumin 3.2 G/DL (3.4-5.0); Bilirubin,Total 0.4 MG/DL (0.2-1.0); Calcium 9.3 MG/DL (8.5-10.1); Osmolality,Calculated 281.4 MOS/KG (273-304)
[2019-10-05] MEDS ORDERED: SODIUM CHLORIDE 0.9% 1,000 ML IV PRN (18:13)
[2019-10-05] MEDS ORDERED: CETIRIZINE 10 MG TABLET PO PRN (19:00)
[2019-10-05] MEDS: TAMSULOSIN 0.4 MG CAPSULE PO SCH (21:12)
[2019-10-06 05:00] LABS: Basophils % 0.2 % (0.0-0.8); Eosinophils # 0.1 10*3/uL (0.0-0.87); Eosinophils % 2.6 % (0.00-10.9); Immature Granulocytes % 0.5 %; Immature Granulocytes Absolute 0.02 #; Lymphocytes # 0.6 10*3/uL (1.4-4.0); Lymphocytes % 14.7 % (21.2-54.2); Mean Corpuscular HGB Conc 29.8 GM/DL (32-36); Mean Corpuscular Volume 93.3 FL (87-102); Mean Platelet Volume 9.7 FL (9.6-12.0); Monocytes % 14.2 % (1.7-12.7); Neutrophils % 67.8 % (38.7-73.9); Platelet Count 185 T/CUMM (130-400); Red Cell Distribution Width 15.6 % (9.3-17.3); White Blood Count 4.3 T/CUMM (4-12)
[2019-10-06 05:04] LABS: Hematocrit 16.8 VOL% (42.0-52.0)
[2019-10-06 05:56] LABS: Albumin 2.9 G/DL (3.4-5.0); Bilirubin,Total 0.6 MG/DL (0.2-1.0); Calcium 9.2 MG/DL (8.5-10.1); Osmolality,Calculated 282.5 MOS/KG (273-304); Thyroid Stimulating Hormone 1.05 uIU/ml (0.358-3.74); Total Protein 6.4 G/DL (6.4-8.3)
[2019-10-06] MEDS: PANTOPRAZOLE 40 MG TABLET PO SCH ×2 (06:04→18:25)
[2019-10-06] MEDS ORDERED: FERROUS SULFATE 325 MG TABLET PO SCH (08:00)
[2019-10-06] MEDS ORDERED: VITAMIN B COMPLEX PO SCH (09:00)
[2019-10-06] MEDS: MULTIVITAMIN (BEROCCA) TABLET PO SCH (09:25)
[2019-10-06] MEDS: ASPIRIN EC 81 MG TABLET PO SCH (09:25)
[2019-10-06] MEDS: SEVELAMER CARBONATE 800 MG TABLET PO SCH ×3 (09:25→17:04)
[2019-10-06] MEDS ORDERED: LIDOCAINE/PRILOCAINE CREAM 5 GM TUBE TOP ONE (09:48)
[2019-10-06] MEDS: BISACODYL 5 MG TABLET PO SCH ×2 (10:40→17:04)
[2019-10-06] MEDS ORDERED: MAGNESIUM CITRATE 300 ML BOTTLE PO ONE (16:00)
[2019-10-06] MEDS ORDERED: POLYETHYLENE GLYCOL 3350/ELECTROLYTES 4,000 ML BOTTLE PO ONE (18:00)
[2019-10-06] MEDS: TAMSULOSIN 0.4 MG CAPSULE PO SCH (21:55)
[2019-10-07] MEDS: BISACODYL 5 MG TABLET PO SCH (00:56)
[2019-10-07] MEDS: PANTOPRAZOLE 40 MG TABLET PO SCH ×2 (06:06→18:34)
[2019-10-07 06:32] LABS: Basophils % 0.7 % (0.0-0.8); Eosinophils # 0.1 10*3/uL (0.0-0.87); Immature Granulocytes % 0.7 %; Immature Granulocytes Absolute 0.03 #; Lymphocytes # 0.5 10*3/uL (1.4-4.0); Lymphocytes % 12.1 % (21.2-54.2); Mean Corpuscular HGB Conc 30.8 GM/DL (32-36); Mean Corpuscular Volume 91.5 FL (87-102); Mean Platelet Volume 9.6 FL (9.6-12.0); Monocytes % 14.9 % (1.7-12.7); Neutrophils % 68.6 % (38.7-73.9); Platelet Count 193 T/CUMM (130-400); Red Cell Distribution Width 15.9 % (9.3-17.3); White Blood Count 4.4 T/CUMM (4-12)
[2019-10-07 06:43] LABS: Red Blood Count 2.84 MC/CUMM (3.8-5.5)
[2019-10-07 06:52] LABS: Albumin 3.1 G/DL (3.4-5.0); Calcium 9.2 MG/DL (8.5-10.1); Total Protein 6.8 G/DL (6.4-8.3)
[2019-10-07] MEDS ORDERED: LIDOCAINE 2% 5 ML VIAL ONE (09:00)
[2019-10-07] MEDS ORDERED: propofoL 200 MG/20 ML VIAL IV ONE (09:00)
[2019-10-07] MEDS: SEVELAMER CARBONATE 800 MG TABLET PO SCH ×3 (09:03→18:34)
[2019-10-07] MEDS: SODIUM CHLORIDE 0.9% 1,000 ML IV SCH (09:03)
[2019-10-07] MEDS: MULTIVITAMIN (BEROCCA) TABLET PO SCH ×2 (09:03→13:01)
[2019-10-07] MEDS: ASPIRIN EC 81 MG TABLET PO SCH ×2 (09:03→13:01)
[2019-10-07] MEDS ORDERED: IRON SUCROSE 200 MG in SODIUM CHLORIDE 0.9% 100 ML IV ONE (10:48)
[2019-10-07] MEDS ORDERED: CINACALCET 30 MG TABLET PO SCH (17:00)
[2019-10-07] MEDS: TAMSULOSIN 0.4 MG CAPSULE PO SCH (20:34)
[2019-10-08 06:04] LABS: Basophils % 0.3 % (0.0-0.8); Eosinophils # 0.2 10*3/uL (0.0-0.87); Eosinophils % 2.1 % (0.00-10.9); Hematocrit 25.7 VOL% (42.0-52.0); Hemoglobin 7.8 GM/DL (14.0-18.0); Immature Granulocytes % 0.4 %; Immature Granulocytes Absolute 0.03 #; Lymphocytes # 0.5 10*3/uL (1.4-4.0); Lymphocytes % 6.4 % (21.2-54.2); Mean Corpuscular HGB Conc 30.4 GM/DL (32-36); Mean Corpuscular Volume 90.8 FL (87-102); Mean Platelet Volume 10.5 FL (9.6-12.0); Monocytes % 11.4 % (1.7-12.7); Neutrophils % 79.4 % (38.7-73.9); Platelet Count 211 T/CUMM (130-400); Red Blood Count 2.83 MC/CUMM (3.8-5.5); Red Cell Distribution Width 15.5 % (9.3-17.3); White Blood Count 7.3 T/CUMM (4-12)
[2019-10-08] MEDS: PANTOPRAZOLE 40 MG TABLET PO SCH (06:04)
[2019-10-08 07:41] VITALS: BP 144/76
[2019-10-08] MEDS: SEVELAMER CARBONATE 800 MG TABLET PO SCH ×2 (08:33→12:41)
[2019-10-08] MEDS: MULTIVITAMIN (BEROCCA) TABLET PO SCH (08:33)
[2019-10-08] MEDS: ASPIRIN EC 81 MG TABLET PO SCH (08:33)
[2019-10-08] MEDS: SODIUM CHLORIDE 0.9% 1,000 ML IV SCH (08:35)
== END 2019-10-08 13:45 | disposition home or self-care (01) | DRG 377 ==
LOC: N.5E 15:23 → SUATTDRO 15:23
PROVIDERS: ADMIT Internal Medicine; ATTEND Internal Medicine

== ENCOUNTER 2021-11-27 12:45 | Inpatient (IN) ==
[2021-11-27] MEDS ORDERED: PANTOPRAZOLE INJ 80 MG in SODIUM CHLORIDE 0.9% 100 ML IV STA (17:53)
[2021-11-27] MEDS ORDERED: SODIUM CHLORIDE 0.9% 500 ML IV STA (17:53)
[2021-11-27] MEDS ORDERED: ONDANSETRON 4 MG/2 ML VIAL IV STA (17:53)
[2021-11-27] MEDS ORDERED: SODIUM CHLORIDE 0.9% 1,000 ML IV PRN (17:54)
[2021-11-27 18:03] LABS: Basophils % 0.2 % (0.0-0.8); Eosinophils # 0.1 10*3/uL (0.0-0.87); Eosinophils % 1.4 % (0.00-10.9); Hematocrit 19.9 VOL% (42.0-52.0); Immature Granulocytes % 0.6 %; Immature Granulocytes Absolute 0.03 #; Lymphocytes # 0.6 10*3/uL (1.4-4.0); Mean Corpuscular HGB Conc 30.7 GM/DL (32-36); Mean Corpuscular Volume 96.6 FL (87-102); Mean Platelet Volume 10.3 FL (9.6-12.0); Monocytes % 10.4 % (1.7-12.7); Neutrophils % 74.4 % (38.7-73.9); Platelet Count 204 T/CUMM (130-400); Red Blood Count 2.06 MC/CUMM (3.8-5.5); Red Cell Distribution Width 15.8 % (9.3-17.3); White Blood Count 4.9 T/CUMM (4-12)
[2021-11-27 18:14] LABS: Alanine Aminotransferase 34 U/L (16-61); Albumin 3.2 G/DL (3.4-5.0); Alkaline Phosphatase 70 U/L (45-117); Aspartate Amino Transferase 12 U/L (0-37); Bilirubin,Total < 0.39 MG/DL (0.20-1.00); Blood Urea Nitrogen 82 MG/DL (7-18); Calcium 8.7 MG/DL (8.5-10.1); Carbon Dioxide 20 MMOL/L (21-32); Estimated Glom Filtration Rate 4 ML/MIN; Glucose 84 MG/DL (74-106); Hemoglobin 6.1 GM/DL (14.0-18.0); Osmolality,Calculated 291.2 MOS/KG (273-304); Sodium 134 MMOL/L (136-145); Total Protein 7.8 G/DL (6.4-8.2)
[2021-11-27 18:16] LABS: Potassium 7.8 MMOL/L (3.5-5.1)
[2021-11-27] MEDS ORDERED: ALBUTEROL NEB SOLN 5 MG/ML 20 ML/BOTTLE CONT NEB STA (18:31)
[2021-11-27] MEDS ORDERED: DEXTROSE 50% 25 GM/50 ML VIAL IV STA (18:31)
[2021-11-27] MEDS ORDERED: INSULIN REGULAR 100 UNIT/ML IV STA (18:31)
[2021-11-27] MEDS ORDERED: CALCIUM GLUCONATE RIDER 2,000 MG/100 ML PREMIX IV ONE (18:32)
[2021-11-27] MEDS ORDERED: DEXTROSE 50% 25 GM/50 ML SYRINGE IV STA (18:35)
[2021-11-27] MEDS ORDERED: SODIUM ZIRCONIUM CYCLOSILICATE 10 GM PACK PO ONE (19:49)
[2021-11-27] MEDS ORDERED: GLUCAGON 1 MG VIAL IM PRN (20:08)
[2021-11-27] MEDS ORDERED: ONDANSETRON 4 MG/2 ML VIAL IV PRN (20:08)
[2021-11-27] MEDS ORDERED: ACETAMINOPHEN 325 MG TABLET PO PRN (20:08)
[2021-11-27] MEDS ORDERED: DEXTROSE 10% 250 ML BAG IV PRN (20:18)
[2021-11-27] MEDS ORDERED: hydrALAZINE 20 MG/1 ML VIAL IV PRN (22:56)
[2021-11-28] MEDS: PANTOPRAZOLE INJ 200 MG in SODIUM CHLORIDE 0.9% 250 ML IV SCH (00:33)
[2021-11-28 00:46] LABS: Calcium 8.7 MG/DL (8.5-10.1); Osmolality,Calculated 296.1 MOS/KG (273-304)
[2021-11-28 00:53] LABS: Potassium 6.2 MMOL/L (3.5-5.1)
[2021-11-28 04:55] LABS: Basophils % 0.2 % (0.0-0.8); Eosinophils # 0.1 10*3/uL (0.0-0.87); Eosinophils % 1.1 % (0.00-10.9); Hematocrit 20.5 VOL% (42.0-52.0); Immature Granulocytes % 0.5 %; Immature Granulocytes Absolute 0.02 #; Lymphocytes # 0.8 10*3/uL (1.4-4.0); Lymphocytes % 17.8 % (21.2-54.2); Mean Corpuscular HGB Conc 31.2 GM/DL (32-36); Mean Corpuscular Volume 89.9 FL (87-102); Mean Platelet Volume 10.4 FL (9.6-12.0); Monocytes % 9.6 % (1.7-12.7); Neutrophils % 70.8 % (38.7-73.9); Platelet Count 182 T/CUMM (130-400); Red Blood Count 2.28 MC/CUMM (3.8-5.5); Red Cell Distribution Width 18.4 % (9.3-17.3); White Blood Count 4.4 T/CUMM (4-12)
[2021-11-28 05:00] LABS: INR 1.1; PT Patient Result 12.5 SECS (10.5-12.0)
[2021-11-28 05:05] LABS: Hemoglobin 6.4 GM/DL (14.0-18.0)
[2021-11-28 05:07] LABS: Osmolality,Calculated 296.2 MOS/KG (273-304)
[2021-11-28 05:14] LABS: Folate > 24.00 NG/ML (5.38-24.0); Vitamin B12 790 PG/ML (211-911)
[2021-11-28 05:16] LABS: Potassium 7.2 MMOL/L (3.5-5.1)
[2021-11-28 05:17] LABS: % Iron Saturation 18.4 % (18-50)
[2021-11-28 06:21] LABS: Sedimentation Rate-Westergren 97 MM/HR (0-20)
[2021-11-28] MEDS: SODIUM ZIRCONIUM CYCLOSILICATE 10 GM PACK PO SCH ×3 (09:33→23:52)
[2021-11-28] MEDS ORDERED: INSULIN REGULAR 10 UNIT, CALCIUM GLUCONATE 1,000 MG in DEXTROSE 10% 250 ML IV ONE (09:38)
[2021-11-28] MEDS ORDERED: MAGNESIUM CITRATE 300 ML BOTTLE PO ONE ×2 (12:23→20:00)
[2021-11-28] MEDS: NICOTINE 21 MG/24 HR PATCH TRANSDERM SCH (19:04)
[2021-11-28 19:53] LABS: Calcium 9.4 MG/DL (8.5-10.1); Potassium 4.2 MMOL/L (3.5-5.1)
[2021-11-28] MEDS: METOPROLOL SUCCINATE XL 50 MG TABLET PO SCH (20:48)
[2021-11-29] MEDS: PANTOPRAZOLE INJ 200 MG in SODIUM CHLORIDE 0.9% 250 ML IV SCH ×2 (06:00→19:11)
[2021-11-29 06:47] LABS: Basophils % 0.3 % (0.0-0.8); Eosinophils # 0.1 10*3/uL (0.0-0.87); Eosinophils % 3.1 % (0.00-10.9); Hematocrit 20.3 VOL% (42.0-52.0); Immature Granulocytes % 0.3 %; Immature Granulocytes Absolute 0.01 #; Lymphocytes # 0.5 10*3/uL (1.4-4.0); Lymphocytes % 15.3 % (21.2-54.2); Mean Corpuscular HGB Conc 30.5 GM/DL (32-36); Mean Corpuscular Volume 90.6 FL (87-102); Mean Platelet Volume 9.7 FL (9.6-12.0); Monocytes % 13.1 % (1.7-12.7); Neutrophils % 67.9 % (38.7-73.9); Platelet Count 173 T/CUMM (130-400); Red Blood Count 2.24 MC/CUMM (3.8-5.5); Red Cell Distribution Width 18.5 % (9.3-17.3); White Blood Count 3.2 T/CUMM (4-12)
[2021-11-29 06:51] LABS: Hemoglobin 6.2 GM/DL (14.0-18.0)
[2021-11-29] MEDS ORDERED: SODIUM CHLORIDE 0.9% 1,000 ML IV PRN (07:03)
[2021-11-29 07:21] LABS: Calcium 9.1 MG/DL (8.5-10.1); Osmolality,Calculated 282.1 MOS/KG (273-304); Potassium 5.6 MMOL/L (3.5-5.1)
[2021-11-29] MEDS: NICOTINE 21 MG/24 HR PATCH TRANSDERM SCH (08:59)
[2021-11-29 09:50] LABS: Hemoglobin A1 (Alkaline) 97.3 % (96.5-98.5); Hemoglobin A2 (Alkaline) 2.7 % (1.5-3.5)
[2021-11-29] MEDS: SODIUM ZIRCONIUM CYCLOSILICATE 10 GM PACK PO SCH ×3 (13:09→22:07)
[2021-11-29] MEDS: METOPROLOL SUCCINATE XL 50 MG TABLET PO SCH ×2 (13:09→22:08)
[2021-11-29] MEDS: POLYETHYLENE GLYCOL POWDER 17 GM PACK PO SCH ×2 (15:01→22:07)
[2021-11-29 15:37] LABS: Hematocrit 27.4 VOL% (42.0-52.0); Hemoglobin 8.8 GM/DL (14.0-18.0)
[2021-11-29 18:05] LABS: Hematocrit 28.1 VOL% (42.0-52.0)
[2021-11-30 04:21] LABS: Basophils % 0.3 % (0.0-0.8); Eosinophils # 0.1 10*3/uL (0.0-0.87); Eosinophils % 3.6 % (0.00-10.9); Hematocrit 27.1 VOL% (42.0-52.0); Hemoglobin 8.6 GM/DL (14.0-18.0); Immature Granulocytes % 0.3 %; Immature Granulocytes Absolute 0.01 #; Lymphocytes # 0.5 10*3/uL (1.4-4.0); Lymphocytes % 13.6 % (21.2-54.2); Mean Corpuscular HGB Conc 31.7 GM/DL (32-36); Mean Corpuscular Volume 91.6 FL (87-102); Mean Platelet Volume 10.5 FL (9.6-12.0); Monocytes % 15.6 % (1.7-12.7); Neutrophils % 66.6 % (38.7-73.9); Platelet Count 191 T/CUMM (130-400); Red Blood Count 2.96 MC/CUMM (3.8-5.5); Red Cell Distribution Width 16.6 % (9.3-17.3); White Blood Count 3.6 T/CUMM (4-12)
[2021-11-30 04:37] LABS: Calcium 8.9 MG/DL (8.5-10.1); Osmolality,Calculated 277.1 MOS/KG (273-304); Potassium 4.1 MMOL/L (3.5-5.1)
[2021-11-30 04:54] LABS: Eosinophils 4 % (0-10); Hypochromia 1+; Lymphocytes 10 % (20-55); Segmented Neutrophils 75 % (50-85); Total Cells Counted 100
[2021-11-30 04:55] LABS: Microcytosis 1+; Ovalocytes Slight; Platelet Estimate Adequate
[2021-11-30] MEDS: NICOTINE 21 MG/24 HR PATCH TRANSDERM SCH (09:38)
[2021-11-30] MEDS: METOPROLOL SUCCINATE XL 50 MG TABLET PO SCH (09:38)
[2021-11-30] MEDS: POLYETHYLENE GLYCOL POWDER 17 GM PACK PO SCH (09:38)
[2021-11-30] MEDS ORDERED: TAMOXIFEN 10 MG TABLET PO SCH (12:00)
[2021-11-30 12:01] VITALS: BP 137/57
[2021-11-30] MEDS ORDERED: TRANEXAMIC ACID TAB 650 MG TABLET PO SCH (15:00)
== END 2021-11-30 16:04 | disposition home or self-care (01) | DRG 377 ==
LOC: N.ED 12:45 → N.EDINP 19:39 → N.TELEN 11-28 18:37
PROVIDERS: ADMIT Internal Medicine; ATTEND Internal Medicine

== ENCOUNTER 2021-12-13 16:04 | Inpatient (IN) ==
[2021-12-13] MEDS ORDERED: ONDANSETRON 4 MG/2 ML VIAL IV PRN (16:49)
[2021-12-13] MEDS ORDERED: GLUCAGON 1 MG VIAL IM PRN (16:49)
[2021-12-13] MEDS ORDERED: ACETAMINOPHEN 325 MG TABLET PO PRN (16:49)
[2021-12-13] MEDS ORDERED: SODIUM CHLORIDE 0.9% 1,000 ML IV PRN (16:54)
[2021-12-13] MEDS ORDERED: DEXTROSE 10% 250 ML BAG IV PRN (16:58)
[2021-12-13 17:52] LABS: Basophils % 0.3 % (0.0-0.8); Eosinophils # 0.2 10*3/uL (0.0-0.87); Eosinophils % 4.7 % (0.00-10.9); Immature Granulocytes % 0.3 %; Immature Granulocytes Absolute 0.01 #; Lymphocytes # 0.5 10*3/uL (1.4-4.0); Lymphocytes % 16.7 % (21.2-54.2); Mean Corpuscular HGB Conc 30.5 GM/DL (32-36); Mean Corpuscular Volume 97.1 FL (87-102); Mean Platelet Volume 9.8 FL (9.6-12.0); Monocytes % 11.6 % (1.7-12.7); Neutrophils % 66.4 % (38.7-73.9); Platelet Count 177 T/CUMM (130-400); Red Blood Count 1.72 MC/CUMM (3.8-5.5); Red Cell Distribution Width 16.6 % (9.3-17.3); White Blood Count 3.2 T/CUMM (4-12)
[2021-12-13 18:03] LABS: Hematocrit 16.7 VOL% (42.0-52.0); Hemoglobin 5.1 GM/DL (14.0-18.0)
[2021-12-13 18:13] LABS: Calcium 8.6 MG/DL (8.5-10.1); Osmolality,Calculated 288.4 MOS/KG (273-304); Potassium 4.7 MMOL/L (3.5-5.1)
[2021-12-13] MEDS: hydrOXYzine HCL 25 MG TABLET PO SCH (20:30)
[2021-12-13] MEDS: DOCUSATE SODIUM 100 MG CAPSULE PO SCH (20:30)
[2021-12-13] MEDS: GABAPENTIN 100 MG CAPSULE PO SCH (20:30)
[2021-12-13] MEDS: METOPROLOL SUCCINATE XL 50 MG TABLET PO SCH (20:30)
[2021-12-13] MEDS: PANTOPRAZOLE 40 MG VIAL IV SCH (20:30)
[2021-12-13] MEDS: rOPINIRole 0.25 MG TABLET PO SCH (20:30)
[2021-12-14 05:26] LABS: Basophils % 0.6 % (0.0-0.8); Eosinophils # 0.1 10*3/uL (0.0-0.87); Eosinophils % 3.8 % (0.00-10.9); Hematocrit 20.2 VOL% (42.0-52.0); Immature Granulocytes % 0.3 %; Immature Granulocytes Absolute 0.01 #; Lymphocytes # 0.5 10*3/uL (1.4-4.0); Lymphocytes % 14.7 % (21.2-54.2); Mean Corpuscular HGB Conc 31.2 GM/DL (32-36); Mean Corpuscular Volume 93.1 FL (87-102); Mean Platelet Volume 9.8 FL (9.6-12.0); Monocytes % 12.4 % (1.7-12.7); Neutrophils % 68.2 % (38.7-73.9); Platelet Count 156 T/CUMM (130-400); Red Blood Count 2.17 MC/CUMM (3.8-5.5); Red Cell Distribution Width 17.9 % (9.3-17.3); White Blood Count 3.4 T/CUMM (4-12)
[2021-12-14 05:31] LABS: Hemoglobin 6.3 GM/DL (14.0-18.0)
[2021-12-14 05:32] LABS: Calcium 7.9 MG/DL (8.5-10.1); Osmolality,Calculated 288.5 MOS/KG (273-304); Potassium 5.1 MMOL/L (3.5-5.1)
[2021-12-14] MEDS: MAGNESIUM OXIDE 400 MG TABLET PO SCH (10:26)
[2021-12-14] MEDS: TAMOXIFEN 10 MG TABLET PO SCH (10:26)
[2021-12-14] MEDS: TRANEXAMIC ACID TAB 650 MG TABLET PO SCH (10:26)
[2021-12-14] MEDS: SEVELAMER CARBONATE 800 MG TABLET PO SCH ×3 (10:26→16:44)
[2021-12-14] MEDS: DOCUSATE SODIUM 100 MG CAPSULE PO SCH ×2 (10:26→21:05)
[2021-12-14] MEDS: MULTIVITAMIN (BEROCCA) TABLET PO SCH (10:27)
[2021-12-14] MEDS: METOPROLOL SUCCINATE XL 50 MG TABLET PO SCH ×2 (10:27→21:06)
[2021-12-14] MEDS: FERROUS SULFATE 325 MG TABLET PO SCH ×2 (10:27→16:44)
[2021-12-14] MEDS: LOSARTAN 50 MG TABLET PO SCH (10:27)
[2021-12-14] MEDS: PANTOPRAZOLE 40 MG VIAL IV SCH ×2 (10:28→21:06)
[2021-12-14] MEDS: BISACODYL 5 MG TABLET PO SCH ×2 (10:28→16:45)
[2021-12-14] MEDS ORDERED: SODIUM CHLORIDE 0.9% 1,000 ML IV PRN ×2 (12:13→12:42)
[2021-12-14] MEDS ORDERED: POLYETHYLENE GLYCOL 3350/ELECTROLYTES 4,000 ML BOTTLE PO ONE (18:00)
[2021-12-14] MEDS ORDERED: MAGNESIUM CITRATE 300 ML BOTTLE PO ONE (21:00)
[2021-12-14] MEDS: rOPINIRole 0.25 MG TABLET PO SCH (21:05)
[2021-12-14] MEDS: GABAPENTIN 100 MG CAPSULE PO SCH (21:05)
[2021-12-14] MEDS: hydrOXYzine HCL 25 MG TABLET PO SCH (21:05)
[2021-12-15] MEDS: BISACODYL 5 MG TABLET PO SCH (00:20)
[2021-12-15 05:45] LABS: Basophils % 0.6 % (0.0-0.8); Eosinophils # 0.1 10*3/uL (0.0-0.87); Eosinophils % 3.9 % (0.00-10.9); Hematocrit 25.7 VOL% (42.0-52.0); Hemoglobin 8.2 GM/DL (14.0-18.0); Immature Granulocytes % 0.6 %; Immature Granulocytes Absolute 0.02 #; Lymphocytes # 0.6 10*3/uL (1.4-4.0); Lymphocytes % 15.4 % (21.2-54.2); Mean Corpuscular HGB Conc 31.9 GM/DL (32-36); Mean Corpuscular Volume 90.8 FL (87-102); Mean Platelet Volume 10.2 FL (9.6-12.0); Neutrophils % 65.5 % (38.7-73.9); Platelet Count 151 T/CUMM (130-400); Red Blood Count 2.83 MC/CUMM (3.8-5.5); Red Cell Distribution Width 16.6 % (9.3-17.3); White Blood Count 3.6 T/CUMM (4-12)
[2021-12-15 05:58] LABS: Calcium 9.2 MG/DL (8.5-10.1); Osmolality,Calculated 286.4 MOS/KG (273-304); Potassium 4.6 MMOL/L (3.5-5.1)
[2021-12-15] MEDS: MULTIVITAMIN (BEROCCA) TABLET PO SCH (09:42)
[2021-12-15] MEDS: SEVELAMER CARBONATE 800 MG TABLET PO SCH ×3 (09:42→17:00)
[2021-12-15] MEDS: FERROUS SULFATE 325 MG TABLET PO SCH ×2 (09:42→17:00)
[2021-12-15] MEDS: DOCUSATE SODIUM 100 MG CAPSULE PO SCH ×2 (09:42→20:57)
[2021-12-15] MEDS: MAGNESIUM OXIDE 400 MG TABLET PO SCH (09:43)
[2021-12-15] MEDS: METOPROLOL SUCCINATE XL 50 MG TABLET PO SCH ×2 (09:43→20:51)
[2021-12-15] MEDS: LOSARTAN 50 MG TABLET PO SCH (09:43)
[2021-12-15] MEDS: TRANEXAMIC ACID TAB 650 MG TABLET PO SCH (09:43)
[2021-12-15] MEDS: TAMOXIFEN 10 MG TABLET PO SCH (09:43)
[2021-12-15] MEDS: PANTOPRAZOLE 40 MG VIAL IV SCH ×2 (10:09→20:56)
[2021-12-15] MEDS: SODIUM CHLORIDE 0.9% 1,000 ML IV SCH (12:30)
[2021-12-15] MEDS ORDERED: propofoL 200 MG/20 ML VIAL IV ONE ×5 (12:53→13:32)
[2021-12-15] MEDS ORDERED: LIDOCAINE 2% 5 ML VIAL ONE (12:53)
[2021-12-15] MEDS ORDERED: LOSARTAN 50 MG TABLET PO ONE (14:50)
[2021-12-15] MEDS: GABAPENTIN 100 MG CAPSULE PO SCH (20:51)
[2021-12-15] MEDS: hydrOXYzine HCL 25 MG TABLET PO SCH (20:51)
[2021-12-15] MEDS: rOPINIRole 0.25 MG TABLET PO SCH (20:51)
[2021-12-16] MEDS: MORPHINE 2 MG/1 ML SYRINGE IV PRN ×4 (01:55→21:12)
[2021-12-16 05:20] LABS: Basophils % 0.2 % (0.0-0.8); Eosinophils # 0.1 10*3/uL (0.0-0.87); Eosinophils % 2.2 % (0.00-10.9); Hemoglobin 8.2 GM/DL (14.0-18.0); Immature Granulocytes % 0.6 %; Immature Granulocytes Absolute 0.04 #; Lymphocytes # 0.5 10*3/uL (1.4-4.0); Lymphocytes % 7.2 % (21.2-54.2); Mean Corpuscular HGB Conc 31.5 GM/DL (32-36); Mean Corpuscular Volume 93.2 FL (87-102); Mean Platelet Volume 10.8 FL (9.6-12.0); Monocytes % 7.9 % (1.7-12.7); Neutrophils % 81.9 % (38.7-73.9); Platelet Count 159 T/CUMM (130-400); Red Blood Count 2.79 MC/CUMM (3.8-5.5); Red Cell Distribution Width 15.8 % (9.3-17.3); White Blood Count 6.4 T/CUMM (4-12)
[2021-12-16 07:26] LABS: Osmolality,Calculated 290.4 MOS/KG (273-304); Potassium 4.5 MMOL/L (3.5-5.1)
[2021-12-16] MEDS: FERROUS SULFATE 325 MG TABLET PO SCH ×2 (09:44→17:38)
[2021-12-16] MEDS: MAGNESIUM OXIDE 400 MG TABLET PO SCH (09:44)
[2021-12-16] MEDS: MULTIVITAMIN (BEROCCA) TABLET PO SCH (09:44)
[2021-12-16] MEDS: LOSARTAN 50 MG TABLET PO SCH (09:45)
[2021-12-16] MEDS: DOCUSATE SODIUM 100 MG CAPSULE PO SCH ×2 (09:45→22:27)
[2021-12-16] MEDS: SEVELAMER CARBONATE 800 MG TABLET PO SCH ×3 (09:45→17:38)
[2021-12-16] MEDS: METOPROLOL SUCCINATE XL 50 MG TABLET PO SCH ×2 (09:45→21:11)
[2021-12-16] MEDS: PANTOPRAZOLE 40 MG VIAL IV SCH ×2 (09:45→21:12)
[2021-12-16] MEDS: TAMOXIFEN 10 MG TABLET PO SCH (09:46)
[2021-12-16] MEDS: TRANEXAMIC ACID TAB 650 MG TABLET PO SCH (09:46)
[2021-12-16] MEDS: SODIUM CHLORIDE 0.9% 1,000 ML IV SCH (12:32)
[2021-12-16] MEDS: GABAPENTIN 100 MG CAPSULE PO SCH (21:11)
[2021-12-16] MEDS: hydrOXYzine HCL 25 MG TABLET PO SCH (21:12)
[2021-12-16] MEDS: rOPINIRole 0.25 MG TABLET PO SCH (21:26)
[2021-12-17] MEDS: MORPHINE 2 MG/1 ML SYRINGE IV PRN (01:35)
[2021-12-17 05:13] LABS: Basophils % 0.2 % (0.0-0.8); Eosinophils # 0.2 10*3/uL (0.0-0.87); Eosinophils % 3.7 % (0.00-10.9); Hematocrit 26.4 VOL% (42.0-52.0); Hemoglobin 8.3 GM/DL (14.0-18.0); Immature Granulocytes % 0.6 %; Immature Granulocytes Absolute 0.03 #; Lymphocytes # 0.6 10*3/uL (1.4-4.0); Lymphocytes % 10.6 % (21.2-54.2); Mean Corpuscular HGB Conc 31.4 GM/DL (32-36); Mean Platelet Volume 10.9 FL (9.6-12.0); Monocytes % 9.7 % (1.7-12.7); Neutrophils % 75.2 % (38.7-73.9); Platelet Count 152 T/CUMM (130-400); Red Blood Count 2.81 MC/CUMM (3.8-5.5); Red Cell Distribution Width 15.3 % (9.3-17.3); White Blood Count 5.4 T/CUMM (4-12)
[2021-12-17] MEDS: FERROUS SULFATE 325 MG TABLET PO SCH (10:52)
[2021-12-17] MEDS: MULTIVITAMIN (BEROCCA) TABLET PO SCH (10:52)
[2021-12-17] MEDS: DOCUSATE SODIUM 100 MG CAPSULE PO SCH (10:52)
[2021-12-17] MEDS: LOSARTAN 50 MG TABLET PO SCH (10:52)
[2021-12-17] MEDS: SEVELAMER CARBONATE 800 MG TABLET PO SCH (10:52)
[2021-12-17] MEDS: TRANEXAMIC ACID TAB 650 MG TABLET PO SCH (10:52)
[2021-12-17] MEDS: METOPROLOL SUCCINATE XL 50 MG TABLET PO SCH (10:53)
[2021-12-17] MEDS: PANTOPRAZOLE 40 MG VIAL IV SCH (10:53)
[2021-12-17] MEDS: MAGNESIUM OXIDE 400 MG TABLET PO SCH (10:53)
[2021-12-17] MEDS: TAMOXIFEN 10 MG TABLET PO SCH (10:53)
[2021-12-17 11:36] VITALS: BP 145/69
== END 2021-12-17 13:00 | disposition home or self-care (01) | DRG 377 ==
LOC: N.TELEN → SUATTDRO 16:34
PROVIDERS: ADMIT Internal Medicine; ATTEND Internal Medicine
PROC: COLONHP (2021-12-15 07:35)

== ENCOUNTER 2021-12-18 15:54 | Inpatient (IN) ==
[2021-12-18] MEDS ORDERED: SODIUM CHLORIDE 0.9% 500 ML IV STA (19:29)
[2021-12-18 20:25] LABS: Alanine Aminotransferase < 9 U/L (16-61); Alkaline Phosphatase 70 U/L (45-117); Amylase 88 U/L (25-115); Aspartate Amino Transferase 5 U/L (0-37); Bilirubin,Total < 0.39 MG/DL (0.20-1.00); Blood Urea Nitrogen 58 MG/DL (7-18); Calcium 9.4 MG/DL (8.5-10.1); Carbon Dioxide 29 MMOL/L (21-32); Estimated Glom Filtration Rate 4 ML/MIN; Glucose 123 MG/DL (74-106); Sodium 136 MMOL/L (136-145)
[2021-12-18 20:28] LABS: Basophils % 0.3 % (0.0-0.8); Eosinophils # 0.2 10*3/uL (0.0-0.87); Eosinophils % 2.6 % (0.00-10.9); Hematocrit 25.3 VOL% (42.0-52.0); Hemoglobin 7.9 GM/DL (14.0-18.0); Immature Granulocytes % 0.6 %; Immature Granulocytes Absolute 0.04 #; Lymphocytes # 0.7 10*3/uL (1.4-4.0); Mean Corpuscular HGB Conc 31.2 GM/DL (32-36); Mean Corpuscular Volume 93.4 FL (87-102); Mean Platelet Volume 10.2 FL (9.6-12.0); Monocytes % 7.4 % (1.7-12.7); Neutrophils % 80.1 % (38.7-73.9); Platelet Count 168 T/CUMM (130-400); Red Blood Count 2.71 MC/CUMM (3.8-5.5); Red Cell Distribution Width 14.8 % (9.3-17.3); White Blood Count 7.2 T/CUMM (4-12)
[2021-12-18 20:47] LABS: INR 1.1; PT Patient Result 11.8 SECS (10.5-12.0); Partial Thromboplastin Time 24.9 SECS (23.8-32.1)
[2021-12-19] MEDS ORDERED: DEXTROSE 10% 250 ML BAG IV PRN (01:02)
[2021-12-19] MEDS ORDERED: GLUCAGON 1 MG VIAL IM PRN (01:02)
[2021-12-19] MEDS ORDERED: ONDANSETRON 4 MG/2 ML VIAL IV PRN ×2 (01:02→13:35)
[2021-12-19] MEDS ORDERED: ACETAMINOPHEN 325 MG TABLET PO PRN (01:02)
[2021-12-19] MEDS ORDERED: SODIUM CHLORIDE 0.9% 1,000 ML IV PRN (01:05)
[2021-12-19] MEDS: PANTOPRAZOLE 40 MG VIAL IV SCH ×3 (04:11→21:42)
[2021-12-19] MEDS: LOSARTAN 50 MG TABLET PO SCH (08:58)
[2021-12-19 09:44] LABS: Basophils % 0.3 % (0.0-0.8); Eosinophils # 0.2 10*3/uL (0.0-0.87); Immature Granulocytes % 0.3 %; Immature Granulocytes Absolute 0.01 #; Lymphocytes # 0.6 10*3/uL (1.4-4.0); Lymphocytes % 13.9 % (21.2-54.2); Mean Corpuscular HGB Conc 31.6 GM/DL (32-36); Mean Corpuscular Volume 90.7 FL (87-102); Mean Platelet Volume 11.2 FL (9.6-12.0); Monocytes % 10.1 % (1.7-12.7); Neutrophils % 71.4 % (38.7-73.9); Red Cell Distribution Width 15.6 % (9.3-17.3)
[2021-12-19 09:46] LABS: Red Blood Count 3.53 MC/CUMM (3.8-5.5)
[2021-12-19 09:47] LABS: Hemoglobin 10.1 GM/DL (14.0-18.0); Platelet Count 113 T/CUMM (130-400)
[2021-12-19] MEDS ORDERED: propofoL 200 MG/20 ML VIAL IV ONE (09:59)
[2021-12-19] MEDS ORDERED: DEXAMETHASONE 4 MG/1 ML VIAL ONE ×4 (09:59→11:15)
[2021-12-19] MEDS ORDERED: LIDOCAINE 2% 5 ML VIAL ONE (09:59)
[2021-12-19] MEDS ORDERED: SUCCINYLCHOLINE 200 MG/10 ML VIAL ONE (09:59)
[2021-12-19] MEDS ORDERED: MIDAZOLAM 2 MG/2 ML VIAL ONE (09:59)
[2021-12-19] MEDS ORDERED: ONDANSETRON 4 MG/2 ML VIAL ONE (09:59)
[2021-12-19] MEDS ORDERED: ETOMIDATE 40 MG/20 ML VIAL IV ONE (09:59)
[2021-12-19] MEDS ORDERED: ROCURONIUM 50 MG/5 ML VIAL IV ONE ×2 (09:59→12:14)
[2021-12-19] MEDS ORDERED: SEVOFLURANE 1 UNIT/15 MINUTE INH ONE ×8 (09:59→12:45)
[2021-12-19 10:00] LABS: Calcium 9.5 MG/DL (8.5-10.1); Osmolality,Calculated 289.7 MOS/KG (273-304); Potassium 5.2 MMOL/L (3.5-5.1)
[2021-12-19] MEDS ORDERED: SUFentanil 50 MCG/ML AMP ONE (10:00)
[2021-12-19 10:01] LABS: Hypochromia 1+; Microcytosis 1+
[2021-12-19] MEDS ORDERED: SODIUM CHLORIDE 0.9% 250 ML IV SCH (11:00)
[2021-12-19] MEDS ORDERED: BUPIVACAINE 0.5% 50 ML VIAL ONE (11:15)
[2021-12-19] MEDS ORDERED: ACETAMINOPHEN INJ 1,000 MG/100 ML VIAL IV ONE (11:27)
[2021-12-19] MEDS ORDERED: PHENYLEPHRINE 0.5% NASAL SPRAY 15 ML BOTTLE BOTH NARES ONE (11:48)
[2021-12-19] MEDS ORDERED: PHENYLEPHRINE 1 MG/10 ML SYRINGE IV ONE (12:45)
[2021-12-19] MEDS ORDERED: GLYCOPYRROLATE 0.4 MG/2 ML VIAL ONE (12:55)
[2021-12-19] MEDS ORDERED: NEOSTIGMINE 10 MG/10 ML VIAL ONE (12:55)
[2021-12-19] MEDS ORDERED: ALBUTEROL/IPRATROPIUM 3 ML NEB RESP TX PRN (13:04)
[2021-12-19] MEDS ORDERED: KETOROLAC 15 MG/1 ML VIAL IV PRN (13:04)
[2021-12-19] MEDS ORDERED: HYDROmorphone 1 MG/1 ML SYRINGE IV PRN ×2 (13:04→13:35)
[2021-12-19 13:42] LABS: Hematocrit 30.9 VOL% (42.0-52.0); Hemoglobin 9.6 GM/DL (14.0-18.0)
[2021-12-19] MEDS: LACTATED RINGERS 1,000 ML IV SCH (14:28)
[2021-12-19] MEDS: METOPROLOL TARTRATE 5 MG/5 ML VIAL IV ONE ×2 (14:33→18:29)
[2021-12-19] MEDS: HYDROmorphone 1 MG/1 ML SYRINGE IV PRN (21:43)
[2021-12-20] MEDS: HYDROmorphone 1 MG/1 ML SYRINGE IV PRN ×3 (01:39→22:11)
[2021-12-20] MEDS: LACTATED RINGERS 1,000 ML IV SCH ×4 (03:59→20:43)
[2021-12-20 05:32] LABS: Basophils % 0.1 % (0.0-0.8); Hematocrit 23.5 VOL% (42.0-52.0); Hemoglobin 7.5 GM/DL (14.0-18.0); Immature Granulocytes % 0.4 %; Immature Granulocytes Absolute 0.04 #; Lymphocytes # 0.5 10*3/uL (1.4-4.0); Lymphocytes % 4.7 % (21.2-54.2); Mean Corpuscular HGB Conc 31.9 GM/DL (32-36); Mean Corpuscular Volume 91.8 FL (87-102); Mean Platelet Volume 10.7 FL (9.6-12.0); Neutrophils % 87.8 % (38.7-73.9); Platelet Count 134 T/CUMM (130-400); Red Blood Count 2.56 MC/CUMM (3.8-5.5); Red Cell Distribution Width 15.3 % (9.3-17.3)
[2021-12-20 05:54] LABS: Alanine Aminotransferase < 9 U/L (16-61); Albumin 2.6 G/DL (3.4-5.0); Alkaline Phosphatase 66 U/L (45-117); Aspartate Amino Transferase 8 U/L (0-37); Band Neutrophils 3 % (0-10); Blood Urea Nitrogen 73 MG/DL (7-18); Carbon Dioxide 26 MMOL/L (21-32); Estimated Glom Filtration Rate 3 ML/MIN; Glucose 93 MG/DL (74-106); Hypochromia 1+; Lymphocytes 2 % (20-55); Osmolality,Calculated 287.4 MOS/KG (273-304); Segmented Neutrophils 90 % (50-85); Sodium 133 MMOL/L (136-145); Total Cells Counted 100; Total Protein 6.6 G/DL (6.4-8.2)
[2021-12-20 05:55] LABS: Microcytosis 1+; Platelet Estimate Adequate
[2021-12-20 05:57] LABS: Potassium 7.4 MMOL/L (3.5-5.1)
[2021-12-20] MEDS ORDERED: SODIUM POLYSTYRENE SULFATE 15 GM/60 ML BOTTLE PO ONE (06:04)
[2021-12-20] MEDS ORDERED: INSULIN REGULAR 10 UNIT, CALCIUM GLUCONATE 1,000 MG in DEXTROSE 10% 250 ML IV ONE (06:30)
[2021-12-20] MEDS ORDERED: SODIUM CHLORIDE 0.9% 1,000 ML IV PRN (08:44)
[2021-12-20] MEDS: KETOROLAC 15 MG/1 ML VIAL IV SCH ×3 (10:25→20:43)
[2021-12-20] MEDS: PANTOPRAZOLE 40 MG VIAL IV SCH ×2 (10:26→20:42)
[2021-12-20] MEDS: LOSARTAN 50 MG TABLET PO SCH (19:20)
[2021-12-21] MEDS: KETOROLAC 15 MG/1 ML VIAL IV SCH ×4 (03:26→20:47)
[2021-12-21 05:56] LABS: Basophils % 0.1 % (0.0-0.8); Eosinophils # 0.1 10*3/uL (0.0-0.87); Eosinophils % 1.7 % (0.00-10.9); Hematocrit 26.4 VOL% (42.0-52.0); Hemoglobin 8.5 GM/DL (14.0-18.0); Immature Granulocytes % 0.7 %; Immature Granulocytes Absolute 0.05 #; Lymphocytes # 0.3 10*3/uL (1.4-4.0); Lymphocytes % 4.6 % (21.2-54.2); Mean Corpuscular HGB Conc 32.2 GM/DL (32-36); Mean Corpuscular Volume 92.6 FL (87-102); Mean Platelet Volume 10.3 FL (9.6-12.0); Monocytes % 6.6 % (1.7-12.7); Neutrophils % 86.3 % (38.7-73.9); Platelet Count 128 T/CUMM (130-400); Red Blood Count 2.85 MC/CUMM (3.8-5.5); Red Cell Distribution Width 15.1 % (9.3-17.3); White Blood Count 7.5 T/CUMM (4-12)
[2021-12-21 06:16] LABS: Calcium 10.1 MG/DL (8.5-10.1); Osmolality,Calculated 282.8 MOS/KG (273-304); Potassium 5.2 MMOL/L (3.5-5.1)
[2021-12-21 06:19] LABS: Eosinophils 3 % (0-10); Hypochromia 1+; Lymphocytes 9 % (20-55); Microcytosis 1+; Ovalocytes Slight; Platelet Estimate Normal; Segmented Neutrophils 81 % (50-85); Total Cells Counted 100
[2021-12-21] MEDS: LACTATED RINGERS 1,000 ML IV SCH (06:27)
[2021-12-21] MEDS: HYDROmorphone 1 MG/1 ML SYRINGE IV PRN (06:28)
[2021-12-21] MEDS: PANTOPRAZOLE 40 MG VIAL IV SCH ×2 (10:57→20:46)
[2021-12-21] MEDS: DEXTROSE 10% 1,000 ML IV SCH (11:22)
[2021-12-21] MEDS: LOSARTAN 50 MG TABLET PO SCH (11:22)
[2021-12-21] MEDS: METOPROLOL TARTRATE 25 MG TABLET PO SCH ×2 (11:22→20:46)
[2021-12-22] MEDS: KETOROLAC 15 MG/1 ML VIAL IV SCH ×4 (02:26→21:16)
[2021-12-22 04:57] LABS: Basophils % 0.1 % (0.0-0.8); Eosinophils # 0.5 10*3/uL (0.0-0.87); Eosinophils % 5.1 % (0.00-10.9); Hematocrit 27.7 VOL% (42.0-52.0); Hemoglobin 8.6 GM/DL (14.0-18.0); Immature Granulocytes % 0.9 %; Immature Granulocytes Absolute 0.08 #; Lymphocytes # 0.5 10*3/uL (1.4-4.0); Lymphocytes % 5.1 % (21.2-54.2); Mean Platelet Volume 10.6 FL (9.6-12.0); Monocytes % 6.8 % (1.7-12.7); Platelet Count 146 T/CUMM (130-400); Red Blood Count 3.01 MC/CUMM (3.8-5.5); Red Cell Distribution Width 14.9 % (9.3-17.3); White Blood Count 8.8 T/CUMM (4-12)
[2021-12-22 05:12] LABS: Calcium 10.1 MG/DL (8.5-10.1); Potassium 4.7 MMOL/L (3.5-5.1)
[2021-12-22 05:42] LABS: Hypochromia 1+; Platelet Estimate Adequate
[2021-12-22] MEDS: DEXTROSE 10% 1,000 ML IV SCH (05:54)
[2021-12-22] MEDS: LOSARTAN 50 MG TABLET PO SCH (12:32)
[2021-12-22] MEDS: PANTOPRAZOLE 40 MG VIAL IV SCH ×2 (12:35→21:16)
[2021-12-22] MEDS: METOPROLOL TARTRATE 25 MG TABLET PO SCH (12:38)
[2021-12-22] MEDS: METOPROLOL TARTRATE 50 MG TABLET PO SCH (21:15)
[2021-12-23] MEDS: KETOROLAC 15 MG/1 ML VIAL IV SCH ×4 (04:46→20:25)
[2021-12-23 08:47] LABS: Basophils % 0.1 % (0.0-0.8); Eosinophils # 0.1 10*3/uL (0.0-0.87); Eosinophils % 1.2 % (0.00-10.9); Immature Granulocytes % 0.3 %; Immature Granulocytes Absolute 0.03 #; Lymphocytes # 0.2 10*3/uL (1.4-4.0); Lymphocytes % 1.8 % (21.2-54.2); Mean Corpuscular HGB Conc 31.2 GM/DL (32-36); Mean Corpuscular Volume 92.6 FL (87-102); Mean Platelet Volume 11.1 FL (9.6-12.0); Monocytes % 7.6 % (1.7-12.7); Platelet Count 135 T/CUMM (130-400); Red Blood Count 3.67 MC/CUMM (3.8-5.5); Red Cell Distribution Width 15.1 % (9.3-17.3); White Blood Count 9.1 T/CUMM (4-12)
[2021-12-23 08:50] LABS: Hemoglobin 10.6 GM/DL (14.0-18.0)
[2021-12-23 09:03] LABS: Calcium 9.1 MG/DL (8.5-10.1); Osmolality,Calculated 278.8 MOS/KG (273-304); Potassium 4.2 MMOL/L (3.5-5.1)
[2021-12-23 09:08] LABS: Eosinophils 2 % (0-10); Hypochromia Slight; Lymphocytes 1 % (20-55); Microcytosis Slight; Platelet Estimate Normal; Segmented Neutrophils 94 % (50-85); Total Cells Counted 100
[2021-12-23] MEDS: METOPROLOL TARTRATE 50 MG TABLET PO SCH ×2 (10:13→20:24)
[2021-12-23] MEDS: LOSARTAN 50 MG TABLET PO SCH (10:13)
[2021-12-23] MEDS: PANTOPRAZOLE 40 MG VIAL IV SCH ×2 (10:17→20:25)
[2021-12-23] MEDS ORDERED: ZALEPLON 5 MG CAPSULE PO PRN (19:50)
[2021-12-24] MEDS: KETOROLAC 15 MG/1 ML VIAL IV SCH ×4 (04:00→21:30)
[2021-12-24 05:49] LABS: Calcium 10.7 MG/DL (8.5-10.1); Osmolality,Calculated 283.8 MOS/KG (273-304); Potassium 4.8 MMOL/L (3.5-5.1)
[2021-12-24 06:04] LABS: Basophils % 0.1 % (0.0-0.8); Eosinophils # 0.3 10*3/uL (0.0-0.87); Eosinophils % 2.2 % (0.00-10.9); Hematocrit 26.1 VOL% (42.0-52.0); Immature Granulocytes % 0.6 %; Immature Granulocytes Absolute 0.08 #; Lymphocytes # 0.4 10*3/uL (1.4-4.0); Mean Corpuscular HGB Conc 31.8 GM/DL (32-36); Mean Corpuscular Volume 92.9 FL (87-102); Mean Platelet Volume 11.3 FL (9.6-12.0); Monocytes % 6.4 % (1.7-12.7); Neutrophils % 87.7 % (38.7-73.9); Red Cell Distribution Width 15.1 % (9.3-17.3)
[2021-12-24 06:14] LABS: Red Blood Count 2.81 MC/CUMM (3.8-5.5); White Blood Count 13.4 T/CUMM (4-12)
[2021-12-24 06:15] LABS: Hemoglobin 8.3 GM/DL (14.0-18.0); Platelet Count 208 T/CUMM (130-400)
[2021-12-24 06:18] LABS: Band Neutrophils 1 % (0-10); Eosinophils 2 % (0-10); Lymphocytes 4 % (20-55); Segmented Neutrophils 92 % (50-85); Total Cells Counted 100
[2021-12-24 06:19] LABS: Hypochromia 1+; Microcytosis 1+; Platelet Estimate Adequate
[2021-12-24] MEDS: METOPROLOL TARTRATE 50 MG TABLET PO SCH ×2 (09:43→21:30)
[2021-12-24] MEDS: LOSARTAN 50 MG TABLET PO SCH (09:43)
[2021-12-24] MEDS: PANTOPRAZOLE 40 MG VIAL IV SCH ×2 (09:44→21:30)
[2021-12-25] MEDS: KETOROLAC 15 MG/1 ML VIAL IV SCH (04:20)
[2021-12-25 08:05] LABS: Basophils % 0.2 % (0.0-0.8); Eosinophils % 0.1 % (0.00-10.9); Hematocrit 25.3 VOL% (42.0-52.0); Immature Granulocytes % 1.9 %; Immature Granulocytes Absolute 0.25 #; Lymphocytes # 0.4 10*3/uL (1.4-4.0); Lymphocytes % 2.9 % (21.2-54.2); Mean Corpuscular HGB Conc 31.6 GM/DL (32-36); Mean Corpuscular Volume 92.7 FL (87-102); Mean Platelet Volume 11.1 FL (9.6-12.0); Monocytes % 4.6 % (1.7-12.7); Neutrophils % 90.3 % (38.7-73.9); Platelet Count 223 T/CUMM (130-400); Red Blood Count 2.73 MC/CUMM (3.8-5.5); Red Cell Distribution Width 15.2 % (9.3-17.3); White Blood Count 13.4 T/CUMM (4-12)
[2021-12-25 08:11] LABS: Calcium 10.7 MG/DL (8.5-10.1); Osmolality,Calculated 280.5 MOS/KG (273-304); Potassium 5.6 MMOL/L (3.5-5.1)
[2021-12-25 08:26] LABS: Band Neutrophils 2 % (0-10); Hypochromia 1+; Lymphocytes 3 % (20-55); Microcytosis 1+; Platelet Estimate Adequate; Segmented Neutrophils 91 % (50-85); Total Cells Counted 100
[2021-12-25] MEDS ORDERED: MEGESTROL 400 MG/10 ML UDCUP PO SCH (09:30)
[2021-12-25] MEDS: PANTOPRAZOLE 40 MG VIAL IV SCH (13:49)
[2021-12-25] MEDS: LOSARTAN 50 MG TABLET PO SCH (14:04)
[2021-12-25] MEDS: METOPROLOL TARTRATE 50 MG TABLET PO SCH (14:05)
[2021-12-25] MEDS: HYDROmorphone 1 MG/1 ML SYRINGE IV PRN (14:10)
[2021-12-25 14:29] VITALS: BP 102/59
== END 2021-12-25 16:14 | disposition home or self-care (01) | DRG 329 ==
LOC: N.ED 15:54 → SUATTDRO 23:01 → N.EDINP 23:01 → N.TELEN 12-19 02:01
PROVIDERS: ADMIT Internal Medicine; ATTEND Internal Medicine